=== PATIENT | female | born 1930 | race Caucasian/White ===

== ENCOUNTER 2016-11-14 09:49 | Inpatient (IN) | payer MEDICARE, MEDICAID ==
[~2016-11-14] VITALS: Ht 154.9 cm; Wt 45.5 kg
[2016-11-14 09:51] VITALS: BP 178/84
[2016-11-14] MEDS ORDERED: AMIODARONE HYD200 MG PO (10:05)
[2016-11-14] MEDS ORDERED: MIRALAX17 GM/DOSE PO (10:06)
[2016-11-14] MEDS ORDERED: COLACE100 MG PO (10:06)
[2016-11-14] MEDS ORDERED: FLUDROCORTISON0.1 MG PO (10:06)
[2016-11-14] MEDS ORDERED: ELIQUIS2.5 M1 PO (10:07)
[2016-11-14] MEDS ORDERED: POTASSIUM CHLO20 ME3 PO (10:07)
[2016-11-14 10:08] LABS: BASO % 0.4 % (0.0-1.0); EOS # 0.2 10*3/uL (0.0-0.4); EOS % 4.3 % (1.0-4.0); HEMATOCRIT 39.9 % (37.0-47.0); HEMOGLOBIN 13.1 g/dl (12.0-16.0); LYMPH # 1.1 10*3/uL (1.3-4.4); MEAN CELL VOLUME 93.4 fl (81.0-99.0); MEAN CORPUSCULAR HGB 30.7 pg (27.0-31.0); MEAN CORPUSCULAR HGB CONC 32.8 g/dl (33.0-37.0); MEAN PLATELET VOLUME 10.1 fl (9.6-12.3); MONO # 0.5 10*3/uL (0.1-1.0); MONO % 10.1 % (3.0-9.0); NEUT % 61.8 % (47.0-73.0); PLATELET COUNT AUTOMATED 253 10*3/uL (130-400); RED BLOOD COUNT 4.27 10*6/uL (4.10-5.10); RED CELL DISTRI WIDTH 14.4 % (0-14.5); WHITE BLOOD COUNT 4.9 10*3/uL (4.8-10.8)
[2016-11-14] MEDS ORDERED: TWOCAL-HN 240 ML8 OZ PO (10:08)
[2016-11-14] MEDS ORDERED: RANEXA500 M1 PO (10:08)
[2016-11-14] MEDS ORDERED: PEPCID20 MG PO (10:08)
[2016-11-14] MEDS ORDERED: DULCOLAX10 M1 RC (10:09)
[2016-11-14] MEDS ORDERED: MIDODRINE HCL5 M1 PO (10:09)
[2016-11-14] MEDS ORDERED: MILK OF MA400 MG/51 PO (10:10)
[2016-11-14] MEDS ORDERED: READY TO USE E133 ML RC (10:11)
[2016-11-14] MEDS ORDERED: TYLENOL325 M2 PO (10:11)
[2016-11-14] MEDS ORDERED: ZOFRAN4 MG PO (10:12)
[2016-11-14 10:17] LABS: PROTHROMBIN TIME 10.4 SECONDS (9.0-12.4)
[2016-11-14 10:24] LABS: ALBUMIN 3.3 gm/dl (3.1-4.5); ALKALINE PHOSPHATASE 104 U/L (45-117); BILIRUBIN, TOTAL 0.5 mg/dl (0.2-1.0); BUN 8 mg/dl (7-24); C-REACTIVE PROTEIN < 0.29 MG/DL (0-0.3); CARBON DIOXIDE 29 mmol/L (21-32); CHLORIDE 107 mmol/L (98-107); CKMB 0.7 ng/ml (0.5-3.6); CPK 34 U/L (26-192); EST GLOM FILT AFRICAN AMERICAN > 60 ml/min; GLUCOSE 96 mg/dL (65-99); MAGNESIUM 2.5 mg/dL (1.5-2.1); POTASSIUM 3.9 mmol/L (3.5-5.1); SGOT/AST 19 IU/L (3-35); SGPT/ALT 17 U/L (12-78); SODIUM 143 mmol/L (136-145); TOTAL PROTEIN 6.8 gm/dL (6.4-8.2); TROPONIN I < 0.015 ng/ml (<0.045)
[2016-11-14 11:15] VITALS: BP 160/89
[2016-11-14 12:00] VITALS: BP 160/89
[2016-11-14 12:29] LABS: CKMB 0.7 ng/ml (0.5-3.6); CPK 30 U/L (26-192)
[2016-11-14 12:39] LABS: TROPONIN I < 0.015 ng/ml (<0.045)
[2016-11-14 16:00] VITALS: BP 161/78
[2016-11-14 18:18] LABS: CKMB 0.7 ng/ml (0.5-3.6); CPK 33 U/L (26-192)
[2016-11-14 18:21] LABS: TROPONIN I < 0.015 ng/ml (<0.045)
[2016-11-14 20:00] VITALS: BP 154/69
[2016-11-15] VITALS: BP 110/56
[2016-11-15 00:36] LABS: CPK 29 U/L (26-192)
[2016-11-15 00:39] LABS: CKMB < 0.5 ng/ml (0.5-3.6); TROPONIN I < 0.015 ng/ml (<0.045)
[2016-11-15 06:19] LABS: BASO % 0.4 % (0.0-1.0); EOS # 0.3 10*3/uL (0.0-0.4); EOS % 5.5 % (1.0-4.0); HEMATOCRIT 36.2 % (37.0-47.0); HEMOGLOBIN 11.6 g/dl (12.0-16.0); LYMPH # 1.7 10*3/uL (1.3-4.4); LYMPH % 31.6 % (27.0-41.0); MEAN CELL VOLUME 94.5 fl (81.0-99.0); MEAN CORPUSCULAR HGB 30.3 pg (27.0-31.0); MEAN PLATELET VOLUME 10.5 fl (9.6-12.3); MONO # 0.6 10*3/uL (0.1-1.0); MONO % 11.2 % (3.0-9.0); NEUT # 2.8 10*3/uL (2.3-7.9); NEUT % 51.1 % (47.0-73.0); PLATELET COUNT AUTOMATED 242 10*3/uL (130-400); RED BLOOD COUNT 3.83 10*6/uL (4.10-5.10); RED CELL DISTRI WIDTH 14.6 % (0-14.5); WHITE BLOOD COUNT 5.5 10*3/uL (4.8-10.8)
[2016-11-15 06:54] LABS: BUN 13 mg/dl (7-24); CARBON DIOXIDE 29 mmol/L (21-32); CHLORIDE 107 mmol/L (98-107); CHOLESTEROL 215 mg/dL (<200); EST GLOM FILT AFRICAN AMERICAN > 60 ml/min; GLUCOSE 101 mg/dL (65-99); MAGNESIUM 1.9 mg/dL (1.5-2.1); PHOSPHOROUS 3.2 mg/dL (2.5-4.9); POTASSIUM 4.1 mmol/L (3.5-5.1); SODIUM 144 mmol/L (136-145); TRIGLYCERIDES 62 mg/dl (<150); VLDL CHOLESTEROL 12 mg/dL (6-40)
[2016-11-15 07:04] LABS: HDL CHOLESTEROL 82 mg/dl (40-60); LDL CHOLESTEROL 121 mg/dL (9-159)
[2016-11-15 08:00] VITALS: BP 158/82
== END 2016-11-15 12:04 | DRG 313 ==
LOC: ED 09:49 → EDHOLD 10:33 → 5E 10:54
PROVIDERS: Internal Medicine; Student in an Organized Health Care Education/Training Program
DX: R07.89 Other chest pain (principal); I25.2 Old myocardial infarction; E44.0 Moderate protein-calorie malnutrition; E83.41 Hypermagnesemia; F33.9 Major depressive disorder, recurrent, unspecified; F01.50 Vascular dementia, unspecified severity, without behavioral disturbance, psychotic disturbance, mood disturbance, and anxiety; I48.0 Paroxysmal atrial fibrillation; I10 Essential (primary) hypertension; Z68.1 Body mass index [BMI] 19.9 or less, adult; Z80.8 Family history of malignant neoplasm of other organs or systems; Z83.3 Family history of diabetes mellitus; I25.10 Atherosclerotic heart disease of native coronary artery without angina pectoris

== ENCOUNTER 2017-04-09 23:05 | Inpatient (IN) | payer MEDICARE, BC, MEDICAID ==
[~2017-04-09] VITALS: Ht 152.4 cm; Wt 40.8 kg
--- NOTE | ~2017-04-09 | PR ---
[place], [place] PROGRESS NOTE NAME: PATRICIA BIRCH UNIT #: [id number] ROOM: 310 DOCTOR: KALIE NAVA MD BIRTHDATE: [birth year] DOS: 04/18/2017 CHIEF COMPLAINT: "Oh honey thank you for visiting." SUMMARY OF THE VISIT: The patient was interviewed as she reclined in a Guerita-chair, sitting in the dining area waiting for breakfast. She smiled readily and engaged in conversation. She was much more pleasant and bright. She offered no other complaints. She is tolerating the current medication regimen well and is much more alert and conversant. MENTAL STATUS: She is alert and oriented to person, possibly place, not time. Mood does seem to be trending towards euthymia. Affect is more appropriate. There are no symptoms of kemi or hypomania. There are no acute auditory or visual hallucinations. No delusions, no paranoia. Memory for short term events is poor, otherwise she is intact. PLAN: I will maintain her current psychotropic regimen, engage in individual and foster milieu activity, planning to return to the least restrictive environment when stable. KALIE NAVA MD CM:PNTRANS [phone] KALIE NAVA MD 04/20/17 0856 interface
--- NOTE | ~2017-04-09 | PR ---
[place], [place] PROGRESS NOTE NAME: PATRICIA BIRCH UNIT #: [id number] ROOM: 310 DOCTOR: KALIE NAVA MD BIRTHDATE: [birth year] DOS: 04/12/2017 CHIEF COMPLAINT: "Oh, good morning, yes I'm in a little bit of discomfort, but don't bother." SUMMARY OF THE VISIT: The patient was interviewed as she was resting quietly in bed. She was interacting with one of the nurses as I entered her room. She smiled readily and engaged readily in conversation. This was one of the better conversations I have had with her since her admission. She was bright, pleasant, superficial. She did endorse some mild discomfort, but did not feel that it was significant to be doubt with. She reports that she is sleeping well, eating well and overall, feels better. She was much more relaxed in conversation and much more engaging. MENTAL STATUS: She is alert and oriented to person, possibly place, but not time. Mood does seem to be trending towards euthymia. Affect is more appropriate. There are no symptoms of hypomania or kemi. There are no overt auditory or visual hallucinations. No paranoia was voiced. Short term memory is exceedingly poor. PLAN: I will go ahead and increase Exelon patch from 4.6 to 9.5 mg a day and continue to augment with Namenda, increasing it from 5 mg a day to 5 mg twice daily. We will engage her in individual and foster milieu activity with the plan to return to the least restrictive environment when stable. KALIE NAVA MD CM:PNTRANS [id number] KALIE NAVA MD 04/12/17 1232 interface
--- NOTE | ~2017-04-09 | PR ---
[place], [place] PROGRESS NOTE NAME: PATRICIA BIRCH UNIT #: [id number] ROOM: 310 DOCTOR: KALIE NAVA MD BIRTHDATE: [birth year] DOS: 04/11/2017 CHIEF COMPLAINT: The patient was nonverbal. SUMMARY OF THE VISIT: The patient was attempted to be interviewed in her room. She seemed to be resting and I entered her room and I attempted on multiple occasions to arouse her and she did not respond. As I left the room, I looked over my shoulder and I did see that she was watching me. Nurses report similar behavior throughout the day that she does play possum in that she will not always respond and will then go ahead and do what she wants to do later. There definitely is an air of paranoia here and a level of guardedness. There was no agitation directed towards me. There was no mood lability. MENTAL STATUS: She is alert and oriented to self. It is unclear by the others because of her lack of cooperation. She remains confused per the nursing report. PLAN: I will go ahead and add Namenda at this point, augment the Exelon patch, maintain the dose of Risperdal at this point. She is episodically noncompliant with her medication, so I may need to load her with Risperdal Consta and/or Invega Sustenna once I know that she is tolerating this medication well. We will attempt to engage her in individual and foster milieu activity with the plan then to return to the least restrictive environment when stable. KALIE NAVA MD CM:PNTRANS KALIE NAVA MD 04/11/1724 interface
--- NOTE | ~2017-04-09 | PR ---
[place], [place] PROGRESS NOTE NAME: PATRICIA BIRCH UNIT #: [id number] ROOM: 310 DOCTOR: FREDA MONTERROSO BIRTHDATE: [birth year] DOS: 04/19/2017 CHIEF COMPLAINT: "Good morning." SUMMARY OF VISIT: The patient was assessed in the dining room where she engaged in conversation. Good eye contact, very pleasant, one or two word responses mostly, but occasionally, I would get a full sentence out of her. No voiced complaints from nursing. They feel that she is overall doing significantly better than at the time of admission. MENTAL STATUS: She appears to be alert and oriented to person, place, I do not think time. Mood euthymic. Affect is appropriate. There are no overt signs of auditory or visual hallucinations, delusions, or paranoia. She states that her sleep is good. Appetite is good. PLAN: I am going to continue with the current medications that we have on board when she was first admitted. She definitely had a urinary tract infection. It looks like the treatment of this has helped significantly. So, we will continue to try to engage in individual and foster milieu therapy. Significant improvement seen over the last 24 hours. DELIA MONTERROSO CNP CM:PNTRANS [phone] FREDA MONTERROSO 04/21/17 0754 interface
--- NOTE | ~2017-04-09 | PR ---
[place], [place] PROGRESS NOTE NAME: PATRICIA BIRCH UNIT #: [id number] ROOM: 310 DOCTOR: KALIE NAVA MD BIRTHDATE: [birth year] DOS: 04/14/2017 CHIEF COMPLAINT: "Good morning." SUMMARY OF THE VISIT: The patient was interviewed as she was resting quietly in bed. She did awake upon approach and engaged in superficial conversation. She tended to be minimizing and stated that there is nothing wrong and she thanked me for visiting. She was fairly pleasant and cooperative, very forgetful however. MENTAL STATUS: She is alert and oriented to person, unclear if she realizes she is in the hospital [facility] and she is not oriented to time. Mood does seem to be more euthymic. Affect more appropriate. There are no suggestive of kemi or hypomania and she did not voice any paranoia or delusion. Short term memory is exceedingly poor. PLAN: I will increase the Exelon patch to its maximum dose of 13.3 mg daily to attempt to maximize potential benefit. Engage in individual and foster milieu activity with the plan to return to the least restrictive environment when psychiatrically stable. KALIE NAVA MD CM:PNTRANS 26 KALIE NAVA MD 04/14/172326 interface
--- NOTE | ~2017-04-09 | PR ---
[place], [place] PROGRESS NOTE NAME: PATRICIA BIRCH UNIT #: [id number] ROOM: 310 DOCTOR: KALIE NAVA MD BIRTHDATE: [birth year] DOS: 04/13/2017 CHIEF COMPLAINT: "Oh, good morning. Thank you for breakfast." SUMMARY OF THE VISIT: The patient was interviewed as she sat in a Guerita chair eating her breakfast. She was bright and pleasant and engaging. Nurses report that she does sundown horribly and in the afternoon, early evening can be variably aggressive and even physically threatening. They also report that last evening or the previous, she was convinced that people were outside her window and that her brother was talking to her stating that he was going to come and kill her. Other voices were heard as well of a similar nature. MENTAL STATUS EXAMINATION: This morning, she is alert and oriented to person, possibly place, but not to time. Mood seems fairly euthymic. Affect appropriate. There are no symptoms of kemi or hypomania. There are no overt auditory or visual hallucinations. No delusions, no paranoia. Short term memory has significant gaps. PLAN: I will go ahead and increase her Namenda from 10 mg daily to 15 mg daily, to augment the Exelon patch 9.5 mg a day. We will continue her other psychotropics, continue to explore placement options as I do believe that she is going to require a long-term care placement at this point given her level of confusion as well as the positive psychosis. KALIE NAVA MD CM:PNTRANS 1247 KALIE NAVA MD 04/13/17 1247 interface
--- NOTE | ~2017-04-09 | PR ---
[place], [place] PROGRESS NOTE NAME: PATRICIA BIRCH UNIT #: [id number] ROOM: 310 DOCTOR: KALIE NAVA MD BIRTHDATE: [birth year] DOS: 04/16/2017 CHIEF COMPLAINT: "My daughter is , my daughter is ," the patient said to me sobbing hysterically. SUMMARY OF THE VISIT: The patient was interviewed as she sat in a Guerita chair just by the nurses' station. Nurses have reported to me that this morning she is fixated on the belief that her daughter has and she was hysterically crying. As I approached her and attempted to calm her, she was inconsolable. She continued to repeat over and over that her daughter is bed. I did talk to her about the possibility of reaching out and calling her daughter to help reassure her that her daughter is still living. She did calm at this point and then later nurses did reach her daughter and put her on the phone, which did seem to console Patricia at that point. Nurses report that she still remains episodically confused and has a great need for support and redirection. She requires help with ADLs and with medication. She has not exhibited any agitation or aggression. She does seem to be tolerating her current medication regimen well. MENTAL STATUS: She is alert and oriented to self. It is unclear at this point if she truly realizes she is in the hospital and she is certainly not oriented to time. Mood remains rather depressed and labile. She requires a great deal of support and redirection. She does have multiple delusions; unclear if these are true delusions or dreams that she makes to be true. In any case, she requires a great deal of support and redirection in order to reorient. PLAN: At the present time, she is on the maximum dose of both the Namenda and the Exelon, which I will maintain. I have adjusted her Risperdal dose down because of excess sedation and she seems to be at this point tolerating this current dose. I will continue to monitor her current symptomatology. I may need to rechallenge her with a slightly higher dose of the Risperdal if these delusions persist as they do seem to impact negatively upon her ability to interact with others and feel secure in her environment. We will discuss with social service liaison options regarding placement and discharge then when psychiatrically stable. [place], [place] PROGRESS NOTE NAME: PATRICIA BIRCH UNIT #: [id number] ROOM: 310 DOCTOR: KALIE NAVA MD BIRTHDATE: [birth year] KALIE NAVA MD CM:MELLISSA [phone] KALIE NAVA MD 04/17/177 interface
--- NOTE | ~2017-04-09 | WRIGHTHP ---
[place], [place] PATIENT HISTORY AND PHYSICAL EXAM NAME: PATRICIA BIRCH UNIT #: [id number] ROOM: 310 DOCTOR: KALIE NAVA MD BIRTHDATE: [birth year] DOS: 04/10/2017 CHIEF COMPLAINT: The patient was nonverbal. HISTORY OF PRESENT ILLNESS: This is an 86-year-old white female who was brought into [facility] on an involuntary basis. The patient apparently became increasingly combative with family. She ran out of her house believing that her son and ajlegdzv-cl-lme were trying to kill her. She stripped naked and ran and hid underneath her car, sustaining several skin tears in the process. Police had to intervene and remove her from underneath the car and brought her to the Emergency Room where they found her to be very combative and very confused. She was ultimately sent here to rule out organic factors and to stabilize on medication. She did receive several p.r.n. interventions which did calm her, but have resulted in installer soft top somnolence at this point making an interview next to impossible. PAST MEDICAL HISTORY: Remarkable for atrial fibrillation, coronary artery disease, hypertension, meningioma, past myocardial infarction, normocytic anemia and vascular dementia. MENTAL STATUS EXAMINATION: My mental status was limited due to her overall level of somnolence and inability to engage in conversation. DIAGNOSIS: Brief psychotic disorder. PLAN: At this point, the patient has been started on Risperdal 0.5 mg in the morning and 1 mg at bedtime. Our screening examinations revealed her to have a low vitamin D level of 19.6, so she will be started on vitamin D 50,000 International Units every week and also on Exelon patch 4.6 mg daily to improve or maintain ADLs, behavior and cognition. We will engage in individual and foster milieu activity with the ultimate plan to return to the least restrictive environment when psychiatrically stable. KALIE NAVA MD CM:HISPHYS:PATIENT HISTORY AND PHYSICAL EXAMINATION [phone] KALIE NAVA MD 04/10/17 1000 interface
--- NOTE | ~2017-04-09 | PR ---
[place], [place] PROGRESS NOTE NAME: PATRICIA BIRCH UNIT #: [id number] ROOM: 310 DOCTOR: KALIE NAVA MD BIRTHDATE: [birth year] DOS: 04/17/2017 CHIEF COMPLAINT: The patient was nonverbal. SUMMARY OF THE VISIT: The patient was attempted to be interviewed as she rested in a Guerita chair sitting in the group therapy room. The patient was somnolent and was sleeping. I attempted on multiple occasions to wake her first verbally and then gently by placing my arm on her shoulder. Neither of these approaches worked. Nurses report that she had a very good day yesterday. Unfortunately, she had a poor night where she was up most of the night and was unable to sleep. MENTAL STATUS: Limited due to her level of somnolence. PLAN: I will renew her Ativan in case she requires p.r.n. intervention. Given the fact that her days seem to be better with the current psychotropic regimen, I will maintain their doses as is. I will add trazodone 50 mg at bedtime as needed for insomnia. We will continue to support and monitor, explore possible options regarding placement and discharge then when psychiatrically stable. KALIE NAVA MD CM:PNTRANS [phone] KALIE NAVA MD 04/17/17 2350 interface
--- NOTE | ~2017-04-09 | DS ---
[place], [place] DISCHARGE SUMMARY NAME: PATRICIA BIRCH UNIT #: [id number] ROOM: 310 DOCTOR: KALIE NAVA MD BIRTHDATE: [birth year] DOS: 04/20/2017 CHIEF COMPLAINT: Initially upon admission, the patient was nonverbal. HISTORY OF PRESENT ILLNESS: This is an 86-year-old white female who was brought in to [facility] on an involuntary basis. The patient believed that her son and gkatynar-bv-jod were trying to kill her. She stripped naked and ran out of the house and hid underneath her car, sustaining several skin tears in the process. Police had to intervene and remove her from underneath the car and brought her into the Emergency Room where they found her to be very combative and confused. She ultimately was sent here to rule out organic factors, to stabilize on medication and to determine the least restrictive environment post-discharge. PAST MEDICAL HISTORY: Remarkable for atrial fibrillation, coronary artery disease, hypertension, meningioma, history of myocardial infarction, normocytic anemia and vascular dementia. SUMMARY OF HOSPITAL COURSE: The patient was admitted to the unit where she was started on Risperdal 0.5 mg in the morning and 1 mg at nighttime. Screening examination showed her to have a low vitamin D level of 19.6, so she was started on vitamin D. She was also started on both Exelon patch 4.6 mg a day and Namenda 5 mg a day. Both of these were rapidly titrated upward to their maximum dose to achieve full benefit. Exelon was brought up ultimately to 13.3 mg daily while the Namenda was brought up to 10 mg twice daily. The patient early in her stay alternated between periods of extreme agitation or somnolence. Ultimately, her Risperdal dose was lowered to 0.25 mg in the morning and 0.5 mg at night and a p.r.n. of trazodone was added to aid her sleep as the cholinesterase inhibitor and the Namenda began taking fact. She became much more alert, conversant and pleasant. She was no longer combative and in fact she was very engaging in conversation and responded to simple redirection well. She had improved sufficiently to be discharged from the hospital to [facility]. MENTAL STATUS AT DISCHARGE: The patient is alert and oriented to person, place, but not time. Mood is bright and pleasant and she is smiling and very engaging. There are no symptoms of hypomania or kemi. There are no auditory or visual hallucinations. No delusions, no paranoia. Short term memory is exceedingly poor. FINAL DIAGNOSES: Paranoid disorder and Alzheimer dementia. PLAN: All of her prescriptions have been printed and will be sent with her if she goes to [facility]. [place], [place] DISCHARGE SUMMARY NAME: PATRICIA BIRCH UNIT #: [id number] ROOM: 310 DOCTOR: KALIE NAVA MD BIRTHDATE: [birth year] KALIE NAVA MD CM:CHRISTOPHER 4 KALIE NAVA MD 04/20/1714 interface
--- NOTE | ~2017-04-09 | PR ---
[place], [place] PROGRESS NOTE NAME: PATRICIA BIRCH UNIT #: [id number] ROOM: 310 DOCTOR: KALIE NAVA MD BIRTHDATE: [birth year] DOS: 04/15/2017 CHIEF COMPLAINT: "Oh honey, thank you for visiting, today's my birthday." SUMMARY OF THE VISIT: The patient was interviewed as she sat in a Guerita chair, eating her breakfast. She smiled upon approach and engaged readily in conversation. She came to tell me that today is her birthday and that she was happy to be able to celebrate it with us. She remains pleasantly confused, but very bright and engaging. MENTAL STATUS: She is alert and oriented to person. It is unclear if she realizes she is at [facility]. She is certainly not oriented to time. Mood this morning seems much more euthymic. Affect was much more appropriate. There is no symptom suggestive of hypomania or kemi. There were no overt auditory or visual hallucinations. No delusions, no paranoia were present. Short term memory remains exceedingly poor. PLAN: I will maintain Exelon patch at 13.3 mg a day. I will increase the Namenda to its maximum dose of 10 mg twice daily, engage in individual and foster milieu activity, returning to the least restrictive environment when psychiatrically stable. KALIE NAVA MD CM:PNTRANS KALIE NAVA MD 04/15/1759 interface
--- NOTE | ~2017-04-09 | DS ---
[place], [place] DISCHARGE SUMMARY NAME: PATRICIA BIRCH UNIT #: [id number] ROOM: 310 DOCTOR: KALIE NAVA MD BIRTHDATE: [birth year] DOS: 04/21/2017 ADDENDUM CHIEF COMPLAINT: "Oh hi, thank you for coming to see me." SUMMARY OF THE VISIT: The patient was interviewed on 2 separate occasions, first when she was walking with the assistance of the Physical Therapy Department. The patient stopped and smiled readily and engaged in conversation. She reports that she is feeling well and she was experiencing no problems. Later, the patient was having issues with her gait and almost went to the floor. This was stopped by the Physical Therapy Department and nurses and we quickly got her a chair. She smiled and stated that she just tuckered out too quickly. Of note, the patient continues to be in good spirits. She has no voice paranoia, nor has she voiced any other delusions. She has been compliant with all aspects of care. She has been compliant with her medications. She has been eating and sleeping well and is now ready for discharge. MENTAL STATUS AT DISCHARGE: The patient is alert and oriented to person, possibly place, but not time. Mood does seem to be more euthymic. She smiles readily and engages in conversation. There are no symptoms suggestive of hypomania or kemi. There are no overt auditory or visual hallucinations. No delusions are present. Short term memory is poor, otherwise she is intact. Disposition and other information per the discharge summary dictated on 04/20/2017. KALIE NAVA MD CM:DISCHARG [id number] KALIE NAVA MD 04/22/17 0636 interface
[~2017-04-09 23:05] MED LIST: AMIODARONE HYD200 MG PO; COLACE100 MG PO; DULCOLAX10 M1 RC; ELIQUIS2.5 M1 PO; FLUDROCORTISON0.1 MG PO; MIDODRINE HCL5 M1 PO; MILK OF MA400 MG/51 PO; MIRALAX17 GM/DOSE PO; PEPCID20 MG PO; POTASSIUM CHLO20 ME3 PO; RANEXA500 M1 PO; READY TO USE E133 ML RC; TWOCAL-HN 240 ML8 OZ PO; TYLENOL325 M2 PO; ZOFRAN4 MG PO
[2017-04-10] MEDS ORDERED: POTASSIUM CHLO20 MEQ PO (00:10)
--- NOTE | 2017-04-10 00:25 | NUR ---
PATRICIA BIRCH a 86 year old F admitted via stretcher from the ADMITTING as a emergency 72 hr. hold admission. Arrived on unit at 0030. ALLERGIES: NKA. Vital signs are: 97.5-76-16 154/91. The client DID NOT sign the following forms with stated understanding: Authorization For The Release of Medical Information, Clothing List, Consent to Voluntary Admission and Hospitalization, Consent and Release Forms/Receipt of Rights, Acknowledgement of Advance Directive Information, Behavioral Health Consent Form, and Informed Consent of Medications. Admitted under the services of Dr. BRANDY MENDOZAKALIE. A search was conducted and hazardous articles were removed. Client was oriented to the unit. CALLCHANTE ESCORTED BY SECURITY STAFF AND AMBULANCE CREW PAPERWORK REVIEWED BY RN PRIOR TO ADMITTANCE.
[2017-04-10 00:35] VITALS: BP 154/91
--- NOTE | 2017-04-10 01:21 | NUR ---
DR. DOUGLAS MADE AWARE OF CONSULT FOR MEDICAL MANAGMENT
--- NOTE | 2017-04-10 02:26 | NUR ---
DR SANCHEZ HERE TO SEE CLIENT. FULL REVIEW OF CASE DONE. AWAITING NEW ORDERS
--- NOTE | 2017-04-10 05:18 | NUR ---
HAS BEEN RESTING WELL SINCE ADMISSION. DRESSINGS DRY AND INTACT. TURNED FOR COMFORT 24 HR chart check completed.
[2017-04-10 07:17] LABS: BASO % 0.6 % (0.0-1.0); EOS # 0.1 10*3/uL (0.0-0.4); EOS % 1.5 % (1.0-4.0); HEMATOCRIT 38.5 % (37.0-47.0); HEMOGLOBIN 12.3 g/dl (12.0-16.0); LYMPH # 1.5 10*3/uL (1.3-4.4); LYMPH % 29.2 % (27.0-41.0); MEAN CELL VOLUME 92.8 fl (81.0-99.0); MEAN CORPUSCULAR HGB 29.6 pg (27.0-31.0); MEAN CORPUSCULAR HGB CONC 31.9 g/dl (33.0-37.0); MEAN PLATELET VOLUME 10.4 fl (9.6-12.3); MONO # 0.5 10*3/uL (0.1-1.0); MONO % 9.8 % (3.0-9.0); NEUT # 3.1 10*3/uL (2.3-7.9); NEUT % 58.7 % (47.0-73.0); PLATELET COUNT AUTOMATED 216 10*3/uL (130-400); RED BLOOD COUNT 4.15 10*6/uL (4.10-5.10); RED CELL DISTRI WIDTH 14.9 % (0-14.5); WHITE BLOOD COUNT 5.3 10*3/uL (4.8-10.8)
[2017-04-10 07:48] LABS: ALBUMIN 3.1 gm/dl (3.1-4.5); ALKALINE PHOSPHATASE 84 U/L (45-117); BUN 15 mg/dl (7-24); CHLORIDE 108 mmol/L (98-107); CHOLESTEROL 243 mg/dL (<200); CREATININE 0.97 mg/dL (0.55-1.02); HDL CHOLESTEROL 83 mg/dl (40-60); LDL CHOLESTEROL 144 mg/dL (9-159); POTASSIUM 3.7 mmol/L (3.5-5.1); SGOT/AST 19 IU/L (3-35); SGPT/ALT 16 U/L (12-78); SODIUM 141 mmol/L (136-145); TOTAL PROTEIN 6.4 gm/dL (6.4-8.2); TRIGLYCERIDES 79 mg/dl (<150); VLDL CHOLESTEROL 16 mg/dL (6-40)
[2017-04-10 07:55] VITALS: BP 117/80
--- NOTE | 2017-04-10 08:33 | NUR ---
TREATMENT TEAM WAS HELD WITH THE FOLLOWING: DR. NAVA, RN,AT, SW. DR NAVA RECOMMENDS PALACEMENT. [facility] WAS WHERE PT WAS BEFORE.
--- NOTE | 2017-04-10 09:47 | NUR ---
PHYSICAL THERPAY PAtient sleeping and unable to arouse. Will attempt at alater date. Thank you for this referral. Verenice Eason,PT
--- NOTE | 2017-04-10 09:48 | NUR ---
Patient approached in bed for Occupational Therapy evaluation this date. Patient was laying bed in position and able to respond verbally minimally with severe lethargy. OTR will attempt at a later date. Thank you for this referral. Sandra Aden OTR/tucker
--- NOTE | 2017-04-10 12:59 | NUR ---
Exercise/Independent activity Patient did not attend group. Patient was asleep and could not wake her. I will try again for afternoon group
--- NOTE | 2017-04-10 14:25 | NUR ---
PT IS NOT TALKING, STARING, SHAKES HEAD YES AND NO AT TIMES, PT STOOD UP AND URINATED ALL OVER THE FLOOR, AND STARTED HITTING STAFF TRYING TO HELP HER. PT LEG DRESSING CAME OFF AND WAS BLEEDING DOWN HER LEG, LET NURSE PUT A 4X4 FOAM TO COVER, WOUNDN;T LET THIS NURSE ASSESS WRIST WOUND. PT IS SCARED, CONFUSED, AND WITHDRAWN, REFUSED BREAKFAST AND LUNCH, REFUSED MEDICATIONS, WILL CONTUNUE TO MONITOR BEHAVIORS, MEDICATION COMPLIANT, WILL CONTINUE TREAMENT PLAN
--- NOTE | 2017-04-10 15:23 | NUR ---
Decorating pumpkins This will help patient with thinking,conentration,self esteem and socialization. Patient did not attend group. Patient was asleep and she was too groggy to wake up
--- NOTE | 2017-04-10 16:50 | NUR ---
DTR DROPPED OFF SOME CLOTHES AND UPPER DENTURES. dTR LOOKING AT PLACEMENT AT [facility]. DTR GOING TO BE MOVING TO [place] CLOSER TO HER DTR. DTR NOT ABLE TO CARE FOR PT DUE TO HER OWN HELATH ISSUES. PT'S BEHAVIOR BEGAN 3 WEEKS AGO. PT WAS DX WITH DEMENTIA ABOUT 2-3 YEARS AGO. NO BEHAVIORS UNTIL NOW. PT WA BEING AGGRESSIVE AND PARANOID. SW ASKED DTR TO CONSIDER OTHER FACILITIES DUE TO [facility] NOT TAKING BEHAVIORS. DTR WILL TALK WITH HER SISTER TO SEE WHAT TO DO.
[2017-04-10 20:00] VITALS: BP 122/56
--- NOTE | 2017-04-11 01:44 | NUR ---
24HR CHART CHECK COMPLETE
--- NOTE | 2017-04-11 06:06 | NUR ---
PT SLEPT >8HRS, UNINTERRUPTED. PT CONFUSED, ORIENTED TO NAME ONLY. IMPROVEMENT NOTED FROM PREVIOUS SHIFT IN DEMEANOR TOWARDS STAFF AND COMPLIANCE WITH MEDICATIONS. NURSE ATTMEPTED TO REORIENT AND PRESENT REALITY WHEN CONFUSION WAS NOTED. ATTEMPTED TO FOSTER THERAPEUTIC RAPPORT. REFER TO FLOWSHEET FOR ADDITIONAL INFO.
[2017-04-11 08:29] VITALS: BP 118/82
[2017-04-11 10:14] LABS: BILIRUBIN 1+ (NEGATIVE); BLOOD TRACE-INTACT (NEGATIVE); CLARITY CLOUDY (CLEAR); COLOR YELLOW (YELLOW); GLUCOSE NEGATIVE (NEGATIVE); KETONE TRACE (NEGATIVE); LEUKO ESTERASE 2+ (NEGATIVE); NITRITE NEGATIVE (NEGATIVE); SPECIFIC GRAVITY >= 1.030 (1.005-1.030); UROBILINOGEN 0.2 E.U./dl (0.2-1.0)
[2017-04-11 10:21] LABS: BACTERIA 3+; EPITHELIAL CELLS 21-30; WBC TNTC wbc/hpf (0-5)
--- NOTE | 2017-04-11 10:40 | NUR ---
CALL RECIEVED FROM PT'S ANDRYTHER/ADELIA EVELYN, UPDATE GIVEN. STATES SHE WILL PROBABLY COME TO VISIT TOMORROW TO GIVE PT ONE MORE DAY TO ACCLIMATE TO THE UNIT AND FOR ATB TX TO BEGIN FOR SUGGESTIVE URINALYSIS.
--- NOTE | 2017-04-11 10:45 | NUR ---
DR. KIRK, DR. HERNANDEZ AND DR. MILLS ON UNIT TO SEE PT AT THIS TIME. MADE AWARE OF ABNORMAL URINALYSIS RESULTS.
--- NOTE | 2017-04-11 11:56 | NUR ---
THIS NURSE APPROACHED PT X3 ATTEMPTS THIS AM TO COMPLETE WOUND ASSESSMENTS AND TREATMENTS ORDERED, PT REFUSED EACH TIME, UPON THE LAST ATTEMPT TO BECAME PHYSICALLY AGGRESSIVE TOWARD THIS NURSE AND YELLED "GET OUT OF HERE, YOU DON'T HAVE TO DO ANYTHING." PT IN BED AT THIS TIME WITH BED ALARM AND MOBILITY CLIP ALARM IN PLACE FOR SAFETY D/T HIGH FALL RISK, RESTING QUIETLY, ALSO REFUSED TO GET OOB FOR LUNCH, STATES "NO!". Q15 MIN MONITORING CONTINUES PER POLICY.
--- NOTE | 2017-04-11 12:53 | NUR ---
PT IS ALERT AND ORIENTED TO PERSON, STATES SHE KNOWS SHE IS IN THE HOSPITAL BUT NOT SURE WHICH ONE, STATES "I THINK IT'S A MENTAL HOSPITAL. THERE MUST BE SOMETHING WRONG WITH ME." PT UNABLE TO RECALL EVENTS LEADING UP TO HOSPITALIZATION. NOT ORIENTED TO TIME OR SITUATION. ST/LT MEMORY GAPS NOTED. RESPIRATIONS EASY ON ROOM AIR. MOOD IS DEPRESSED, EASILY ANGRY/IRRITABLE WITH HANDS ON CARE OR REDIRECTION. PT DENIES HALLUCINATIONS, NO RESPONSE TO INTERNAL STIMULI NOTED. PT DENIES SI/HI. MEDICATION COMPLIANT THIS AM, HOWEVER; PT REFUSED WOUND CARE DESPITE MULTIPLE ATTEMPTS. N.O RECIEVED FOR MONUROL X 1 DOSE FOR TX OF UTI. NO DISTRESS NOTED. HIGH FALL RISK PRECAUTIONS MAINTAINED, REMINDED TO PT USE CALL [place] FOR ASSISTANCE OOB, BED ALARM AND MOBILITY ALARM ACTIVE AND AUDIBLE. NO DISTRESS NOTED. Q15 MIN SAFETY CHECKS MAINTAINED, REFER TO [facility] FLOWSHEET FOR SPECIFIC MONITORING.
--- NOTE | 2017-04-11 17:08 | NUR ---
SHIFT CHART CHECK COMPLETED.
[2017-04-11 20:14] VITALS: BP 136/86
--- NOTE | 2017-04-12 00:26 | NUR ---
24HR CHART CHECKS COMPLETE
--- NOTE | 2017-04-12 06:06 | NUR ---
PT SLEPT >8HRS WITH TWO AWAKENINGS FOR TOILETING. PT REFUSED TO ALLOW NURSING STAFF TO CHANGE DRESSINGS X2. ATTEMPTED TO EDUCATE PT REGARDING THE IMPORTANCE OF ADHERING TO THE WOUND CARE ORDERS. PT UNABLE TO PROPERLY VERBALIZE UNDERSTANDING OF EDUCATION. ENCOURAGED PT TO VERBALIZE NEEDS TO STAFF. REFER TO FLOWSHEET FOR ADDITIONAL INFO.
[2017-04-12 07:54] VITALS: BP 126/68
--- NOTE | 2017-04-12 15:38 | NUR ---
Yoli is noted to exhibit a depressed mood and some confusion today. She is oriented to person only. Compliant with medications. Limited understanding of current issues due to cognitive impairment. She has required assistance with toileting and hygiene measures and is noted to be cooperative when completing these tasks. Dr. Sneed in to see her today with orders received. No overt s/s of hallucinatory activity is noted. Appetite is fair to good, however, she has required some encouragement to maintain an adequate fluid intake. Daughter, Kathy visited today and she voiced feelings of relief that Yoli was able to recognize her and converse appropriately. Yoli has not offered any interacting with peers, but does readily converse with staff when approached. Refer to [facility] flowsheet for more specific monitoring. Wound care and dressing changes completed as prescribed.
--- NOTE | 2017-04-12 18:34 | NUR ---
Yoli refused to eat her evening meal stating that she was not hungry. She has required one assist to transfer for toileting and has been noted several times attempting to ambulate independently. Body alarms in place and fall precautions have been maintained.
[2017-04-12 20:00] VITALS: BP 151/82
--- NOTE | 2017-04-13 01:41 | NUR ---
24 HR chart check completed.
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
--- NOTE | 2017-04-13 04:28 | NUR ---
DRESSING APPLIED ORDERED. PATIENT TOLERATED WELL.
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
--- NOTE | 2017-04-13 05:56 | NUR ---
PATIENT OBSERVED ON Q 15 MIN SAFETY CHECKS TO HAVE SLEPT APPROX 1 HOURS WITH MULTIPLE AWAKENINGS DUE TO POSITIVE AUDITORY HALLUCINATIONS OF HER BROTHER OR SISTER WAS TALKING TO HER THROUGH THE WINDOW. PT ALSO ATTEMPTED TO GET OUT OF BED X3 WITHOUT ASSISTANCE OF STAFF THIS SHIFT. FALL PRECAUTIONS MAINTAINED AND PATIENT MOVED NEAR NURSES STATION FOR SAFETY. MEDICATION COMPLIANT THIS SHIFT WITHOUT DIFFICULTY. CURRENTLY SITTING WITH STAFF WATCHING TV IN DINING ROOM. PATIENT APPEARS CALM, NO PERIODS OF TEARFULNESS NOTED. PRN ATIVAN EFFECTIVE AT THIS TIME. NO SIGNS OR SYMPTOMS OF DISTRESS NOTED.
[2017-04-13 08:02] VITALS: BP 132/79
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
--- NOTE | 2017-04-13 09:40 | NUR ---
Spoke with danilo in regards to pt. being d/c'ed to [facility]. Danilo requested updated info. in regards to pt. behavior over weekend and they do have a female bed if pt. behavior improves. Will also send out referral to [facility] where another dtr. lives and will help care for pt.
--- NOTE | 2017-04-13 10:52 | NUR ---
DR. KIRK HERE TO SEE PT AT THIS TIME. MADE AWARE OF URINE CULTURE RESULTS SHOWING E.COLI AND THAT PT WAS TREATED WITH MONUROL X1 ON 04/11/17.
--- NOTE | 2017-04-13 11:01 | NUR ---
Exercise/Trivia Exercise helps with mobility,circulation ans staying active,Trivia helps with socializing,concentration,memory and thinkinPatient did attend group as well as participated. Patient in a chair but did very well exercising even lifting leg when needed. Patient stayed on task and followed direction well. patient also participated in trivia doing very well answering questions and engaging with other patients
--- NOTE | 2017-04-13 12:55 | NUR ---
Dr. Sneed looking at end of week if placement found for pt. still needs to adjust med's to get pt. psychiatrically stabilzed and "sundowning" behaviors under control.
--- NOTE | 2017-04-13 12:56 | NUR ---
case management called [employer] into [employer], per Kasandra, is a med gap policy and her primary insurance is medicare
--- NOTE | 2017-04-13 12:57 | NUR ---
Guevara spoke with MISAEL Mcmahon on Unit for update. Beto states that family is to call in and let her know where to send referral in [place], in case [facility] is not an option. GUEVARA sent updated info. to [facility]. [facility] is concerned that pt. behavior may not be appropriate for their facility.
--- NOTE | 2017-04-13 13:42 | NUR ---
CALL RECIEVED FROM PT'S DAUGHTER/POA EVELYN, UPDATE GIVEN, MADE AWARE PT REFUSED FLU SHOT ON THURSDAY, THIS NURSE QUESTIONED IF POA WOULD LIKE THIS NURSE TO ATTEMPT TO GIVE FLU SHOT DURING THIS STAY, POA STATES "YES PLEASE."
--- NOTE | 2017-04-13 13:59 | NUR ---
UNDER THE DIRECTION OF SHOT BLAST EQUIPMENT OPERATOR GAVINO, FLU VACCINE ORDERED UNDER COVERING HOSPITALIST, DR. KIRK PER POLICY DIRECTED TO DIRECTOR BY DR. SUGGS.
--- NOTE | 2017-04-13 14:28 | NUR ---
Patient not available for OT evaluation this date as she was in group therapy session. OTR will attempt at a later date. Thank you for this referral. Sandra Aden OTR/Carlos
--- NOTE | 2017-04-13 14:31 | NUR ---
PHYSICAL THERAPY PAtient at group at this time. Thak you for this referral. Verenice Eason,PT
--- NOTE | 2017-04-13 18:37 | NUR ---
SHIFT CHART CHECK COMPLETED.
[2017-04-13 19:53] VITALS: BP 148/87
--- NOTE | 2017-04-14 05:22 | NUR ---
PT SLEPT >8 HOURS, UNINTERRUPTED. PT CONFUSED, ORIENTED TO NAME ONLY. NO HALLUCINATIONS/DELUSIONS NOTED SO FAR THIS SHIFT. MEDICATION COMPLIANT WITHOUT DIFFICULTY AFTER REVIEW. NO PHYSICAL COMPLAINTS VOICED. PATIENT CURRENTLY IN BED WITH EYES CLOSED. RESPIRATIONS EASY AND REGULAR, NO SIGNS OR SYMPTOMS OF DISTRESS NOTED. REFER TO [facility] FLOWSHEET FOR SPECIFIC MONITORING.
--- NOTE | 2017-04-14 07:57 | NUR ---
Fall Craft This will help patient with concentration, mobility, thinking,socializing and self esteem Patient did attend group but did not participate stating " I'm not a crafty kind of girl." patient sat at the table talking and "organizing" my craft supplies. Patient also gave advise to another patient sitting next to her on her craft
[2017-04-14 08:00] VITALS: BP 128/68
--- NOTE | 2017-04-14 09:15 | NUR ---
DR. KIRK ON UNIT TO SEE PT AT THIS TIME.
--- NOTE | 2017-04-14 09:51 | NUR ---
PHYSICAL THERAPY Pnt unable to be aroused to participate in PT evaluation today. Will attempt again tomorrow. Shelley Verma, PT
--- NOTE | 2017-04-14 13:26 | NUR ---
PT IS ALERT AND ORIENTED TO SELF ONLY, CONFUSED IN ALL OTHER AREAS. ST/LT MEMORY DEFICITS NOTED. RESPIRATIONS EASY ON ROOM AIR. MOOD IS DEPRESSED, AFFECT IS FLAT, TEARFUL AT VISITATION WITH DAUGTHER. SPEECH IS SOFT, BUT COHERENT, ABLE TO MAKE NEEDS KNOWN TO STAFF WITHOUT DIFFICULTY. PT DENIES HALLUCINATIONS, NO RESPONSE TO INTERNAL STIMULI NOTED. PT DENIES SI/HI. NO PARANOIA/DELUSIONS NOTED THIS SHIFT. PT SLEEPING UNTIL APPROX 11AM THIS DATE, PT EASILY AROUSABLE BUT REFUSED TO GET OOB FOR BREAKFAST, AM MEDS WERE HELD D/T DROWSINESS, DR. NAVA AWARE. PT WAS ASSISTED OOB AND WITH ADLS APPROX 11AM BY MILIEU STAFF, PT AWAKE, ALERT AND APPROPRIATE AT THIS TIME, ATE 100% OF LUNCH WITH ADEQUATE FLUID INTAKE, STATES "THAT BREAKFAST WAS EXCEPTIONALLY GOOD THIS MORNING, THANK YOU!" PT RELIANT ON STAFF FOR ASSISTANCE WITH ADLS AND TOILETING, PT CONINENT OF BOWEL AND BLADDER. NO DISTRESS NOTED. Q15 MIN SAFETY CHECKS MAINTAINED, HIGH FALL RISK PRECAUTIONS MAINTAINED PER POLICY, ALARMS ACTIVE AND AUDIBLE. REFER TO [facility] FLOWSHEET FOR SPECIFIC MONITORING.
--- NOTE | 2017-04-14 13:29 | NUR ---
Reading/Reminiscing Patient was asleep and was unable to awaken. Will try for afternoon group
--- NOTE | 2017-04-14 17:56 | NUR ---
PT DID NOT PARTICIPATE IN GROUP DUE TO SLEEPING.
--- NOTE | 2017-04-14 17:56 | NUR ---
MISAEL BRIEFLY SPOKE WITH DTR. DTR STATED IF [facility] DOES NOT ACCPET PT THEN SHE'LL TAKE HER HOME.
--- NOTE | 2017-04-14 18:59 | NUR ---
SHIFT CHART CHECK COMPLETED.
[2017-04-14 20:09] VITALS: BP 147/70
--- NOTE | 2017-04-14 21:14 | NUR ---
MEDICATION COMPLIANT, ALERT AND CALM. READING BOOK. STATES HAD A GOOD DAY P#1- PSYCOSIS I- TEACH ABOUT ALL MEDICATIONS, TEACH NEW COPING SKILLS, ENCOURAGE CLIENT TO VERBALIZE FEARS, MONITOR GAIT P- MEDICATION COMPLIANCE, NO FALLS, USE NEW TECHNIQUES TO KEEP SELF ORIENTED NO FALLS
--- NOTE | 2017-04-15 02:39 | NUR ---
24 HR chart check completed.
--- NOTE | 2017-04-15 06:21 | NUR ---
SLEPT WELL PAST 2200PM. UP TO VOID, SMALL INCONTINENCE OF URINE.
[2017-04-15 07:44] LABS: BASO % 0.6 % (0.0-1.0); EOS # 0.2 10*3/uL (0.0-0.4); EOS % 3.3 % (1.0-4.0); HEMOGLOBIN 10.8 g/dl (12.0-16.0); LYMPH # 1.6 10*3/uL (1.3-4.4); LYMPH % 30.8 % (27.0-41.0); MEAN CELL VOLUME 94.3 fl (81.0-99.0); MEAN CORPUSCULAR HGB 30.9 pg (27.0-31.0); MEAN CORPUSCULAR HGB CONC 32.7 g/dl (33.0-37.0); MEAN PLATELET VOLUME 10.4 fl (9.6-12.3); MONO # 0.6 10*3/uL (0.1-1.0); MONO % 10.8 % (3.0-9.0); NEUT # 2.8 10*3/uL (2.3-7.9); NEUT % 54.1 % (47.0-73.0); PLATELET COUNT AUTOMATED 185 10*3/uL (130-400); RED CELL DISTRI WIDTH 14.6 % (0-14.5); WHITE BLOOD COUNT 5.1 10*3/uL (4.8-10.8)
--- NOTE | 2017-04-15 08:04 | NUR ---
Who Am I?/Positive Traits This helps wit self esteem,concentrarion socialization and thinking Patient did attend group as well a participated. Patient was very encouraging to others stating positive traits. Patient seemed to have no issues choosing positive traits for herself
[2017-04-15 08:22] VITALS: BP 136/68
[2017-04-15 08:22] LABS: ALBUMIN 2.6 gm/dl (3.1-4.5); ALKALINE PHOSPHATASE 80 U/L (45-117); BUN 16 mg/dl (7-24); CHLORIDE 107 mmol/L (98-107); CREATININE 0.83 mg/dL (0.55-1.02); POTASSIUM 3.8 mmol/L (3.5-5.1); SGOT/AST 21 IU/L (3-35); SGPT/ALT 16 U/L (12-78); SODIUM 142 mmol/L (136-145); TOTAL PROTEIN 5.7 gm/dL (6.4-8.2)
--- NOTE | 2017-04-15 08:30 | NUR ---
Treatment Team was held with the following: Dr. Sneed, ASSISTANT PROGRAM DIRECTOR, Medical Student. RN, SW, and AT. Dr. Sneed is recommended 30day Rehab stay or NH for safety. SW has referral for [facility]. Family will take home if [facility] does not take her. MISAEL will speak with Dtr about 's recomendation and concerns.
--- NOTE | 2017-04-15 10:41 | NUR ---
DR KIRK UP SEE PATIENTS
--- NOTE | 2017-04-15 10:59 | NUR ---
24 HR chart check completed.
--- NOTE | 2017-04-15 11:00 | NUR ---
PT UP IN A VERÓNICA CHAIR, EYES CLOSED, AROUNSABLE, PLEASANT
--- NOTE | 2017-04-15 12:50 | NUR ---
Nutritional Support Services Note: Skin tear noted. Appetite is improving. Will continue with a regular diet as ordered. Encourage intake. Provide snacks between meals. Will follow as needed. Nova Thompson
--- NOTE | 2017-04-15 13:15 | NUR ---
Exercise/Games Patient was in attendence during group but did not participate. Patient was asleep and i could not get her awake for group
--- NOTE | 2017-04-15 14:43 | NUR ---
PHYSICAL THERAPY PAtient at group at this time. Thank you for this referral. Verenice Galvan,PT
--- NOTE | 2017-04-15 15:00 | NUR ---
Patient attending group therapy session and not available for OT evaluation. Thank you for this referral. Sandra Aden OTR/l
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
--- NOTE | 2017-04-15 17:23 | NUR ---
ALERT TO SELF, THINKS TODAY IS HER BIRTHDAY STATES SHE IS 89YEARS OLD, PLEASANT, AND COOPORATIVE, INCONTINENT, - BM TODAY, SOCIAL WITH STAFF , SMILING, REST ON AND OFF THROUGH OUT THE DAY, MED COMPLIANT TAKE PILLS WHOLE
[2017-04-15 20:00] VITALS: BP 131/74
--- NOTE | 2017-04-15 22:14 | NUR ---
MEDICATION COMPLIANT. C/O BEING TIRED AND JUST WANTED TO GO TO SLEEP. CONTINENT OF URINE. PM CARE DONE. REFUSED PM SNACK
--- NOTE | 2017-04-16 01:37 | NUR ---
OUT OF BED AND CONFUSED. THINKS SHE IS HOME AND WANTS TO GO DOWNSTAIRS AND SLEEP ON THE COUCH. REORIENTED AND PLACED BACK IN BED IN POSITION OF COMFORT. WILL MONITOR
--- NOTE | 2017-04-16 03:28 | NUR ---
INTERMITTENTLY AWAKENING. EMOTIONAL SUPPORT PROVIDED. POSITION OF COMFORT. 24 HR chart check completed.
[2017-04-16 08:16] VITALS: BP 116/80
--- NOTE | 2017-04-16 08:56 | NUR ---
Craft/Being afraid This craft included a saying about being afraid. This group helped patients with discussing feelings especially the feeling of being afraid Patient did attend group as well as participated. Patient stayed on tasks with little or no 1:1. Patient wasnt afraid because "today is my birthday." Patient confused it is not her birthday
--- NOTE | 2017-04-16 11:33 | NUR ---
ON UNIT TO ASSESS PT.
--- NOTE | 2017-04-16 14:48 | NUR ---
PHYSICAL THERAPY EVALUATION COMPLETED. PATIENT SITTING IN VERÓNICA CHAIR IN COMMON ROOM UPON THIS CLINIAN'S ARRIVAL. PATIENT PLEASANT AND SMILING; COOPERATIVE AND WILLING TO PARTICIPATE. PATIENT STATED SHE NEEDS TO GET HER LEGS STRONGER AND WANTS TO WALK. PATIENT NOT ORIENTED TO PLACE OR TIME, ORIENTED TO NAME ONLY. ALIGNER TYPEWRITER X 1 WITH 2 ATTEMPTS TO STAND FROM VERÓNICA CHAIR. GAIT TWICE APPROX 50FT WITH ALIGNER TYPEWRITER X 1. PATIENT WILL BENEFIT FROM GAIT WITH A FRONT WHEELED WALKER WITH SBA.B LE STRENGTH IS FAIR-GOOD AND EQUAL BILATERALLY. LOW COMPLEXITY PHYSICAL THERAPY EVALUATION; PATIENT REQUIRED LITTLE MANUAL ASSISTANCE, MORE ASSITANCE FOR SAFETY FOR FOOT PLACEMENT AND REDUCING FALL RISK WALKING, MINIMAL MEDICAL REVIEW/PHM. CONTINUE PT AND RECOMMNEND SNF PLACEMENT FOR STRENGTHENING, GAIT, BALANCE, TRANSFERS AND SAFETY.
--- NOTE | 2017-04-16 16:22 | NUR ---
PT ALERT TO PERSON ONLY, UNSURE OF PLACE AND TIME. PT MED COMPLIANT WITHOUT DIFFICULTY. PT MOOD IS STABLE. PT PLEASANT AND COOPERATIVE, INTERACTING WITH STAFF AND PEERS. NO HALLUCINATIONS OR DELUSIONS NOTED. PT DENIES ANY HOMICIDAL/SUICIDAL THOUGHTS. PT TEARFUL THIS MORNING, THINKING HER DAUGHTER HAS , EMOTIONAL SUPPORT PROVIDED AND PT SPOKE WITH DAUGHTER ON THE PHONE. PT CAN BE TEARFUL AT TIMES THROUGHOUT THE DAY, EMOTIONAL SUPPORT AND REDIRECTION PROVIDED. PT CONTINENT OF BOWEL AND BLADDER WITH EPISODES OF INCONTINENCE NOTED, CARE PROVIDED NEEDED. WOUND CARE PROVIDED, PT REFUSED DRESSINGS TO BILATERAL WRISTS STATING "THEY ARE JUST SCABS, I DON'T NEED ANYTHING." PLAN IS TO ENCOURAGE PT TO PARTICIPATE IN GROUPS/ACTIVITIES, ORIENT PT TO REALITY WITH EACH INTERACTION, MONITOR PT BEHAVIORS ON Q15 MIN SAFTEY CHECKS.
--- NOTE | 2017-04-16 16:48 | NUR ---
Occupational Therapy evaluation completed [facility] with full eval to follow. Precautions include fall risk, disorientation, low complexity level. Recommend OT per POC and SNF upon d/c Thank you for this referral. Sandra Aden OTR/l
[2017-04-16 20:16] VITALS: BP 109/64
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
--- NOTE | 2017-04-17 03:28 | NUR ---
24HR CHART CHECK COMPLETE
--- NOTE | 2017-04-17 06:01 | NUR ---
PT SLEPT >5HRS WITH ONE INTERRUPTION THAT LASTED SEVERAL HOURS. PT WAS ATTENDING TO INTERNAL STIMULI, CONVINCED HER DAUGHTER WAS SPEAKING TO HER. REFER TO FLOWSHEET FOR ADDITIONAL INFO/
--- NOTE | 2017-04-17 07:51 | NUR ---
04/16/2017 Morning: Triradha This helps the patient with self esteem, thimking, concentration, socializing and lifting their spirits. Patient did attend group as well as participate. In the begining of group patient was crying and upset but was soon laughing and smiling answering questions with the other patients.
[2017-04-17 08:01] VITALS: BP 148/68
--- NOTE | 2017-04-17 11:50 | NUR ---
Exercise/[place] Patient did not attend group. Patient was asleep in the quiet room
--- NOTE | 2017-04-17 12:30 | NUR ---
MISAEL SPOKE WITH EVELYN QUINN Tauntr. PT IS ACCPETED. MISAEL FAXED UPDATED INFORMATION AND WILLBE DISCHARGED THURSDAY.
--- NOTE | 2017-04-17 14:32 | NUR ---
PHYSICAL THERAPY Patient presented to therapy with report of no pain or other concerns. Patient agrees to participate in therapy. Patient performed sit to stands CGA X 1. Patient ambulated 150' x 1 with W/W and CGA X 1. Patient then ambulated again with PATROL MOTHER 200' x 1. Patient performed seated ther ex in all planes of movement for the LEs x 20 each. Patient tolerated all gait and ther ex very well with no increased fatigue or other difficulty. Patient was 1:1 with this ELECTRONIC PUBLICATIONS SPECIALIST for 25 minutes. OCTAVIA MOHR ELECTRONIC PUBLICATIONS SPECIALIST
--- NOTE | 2017-04-17 15:14 | NUR ---
Reminiscing This helps with memories,concentration,self esteem, and socializing Patient did attend group as well as participated. Patient shared memories of late summer/early fall kacey she helped her mother with. Patient went on to tell everone what was canned this time of year and other things she didas a child and growing up
--- NOTE | 2017-04-17 15:56 | NUR ---
Patient asleep. Will try back at another date.LISANDRO SOTO/Carlos
--- NOTE | 2017-04-17 17:41 | NUR ---
PT ALERT TO PERSON ONLY. PT MED COMPLIANT WITHOUT DIFFICULTY. PT MOOD IS STABLE. PT PLEASANT AND COOPERATIVE WITH STAFF AND PEERS. NO OVERT S/S OF HALLUCINATIONS OR DELUSIONS NOTED. PT DENIES ANY HOMICIDAL/SUICIDAL THOUGHTS. PT CONTINENT OF BOWEL AND BLADDER WITH EPISODES OF INCONTINENCE NOTED, CARE PROVIDED NEEDED. PT NAPPED THROUGHOUT THE MORNING, PT AROUSABLE BUT REFUSING TO WAKE FOR BREAKFAST OR LUNCH. PLAN IS TO ENCOURAGE PT TO PARTICIPATE IN GROUPS/ACTIVITIES, MONITOR PT BEHAVIORS ON Q15 MIN SAFETY CHECKS.
[2017-04-17 20:06] VITALS: BP 116/67
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
--- NOTE | 2017-04-18 05:44 | NUR ---
24HR CHART CHECKS COMPLETE
--- NOTE | 2017-04-18 06:41 | NUR ---
PT SLEPT >8HRS WITH ONE INTERRUPTION TO USE THE RESTROOM
[2017-04-18 08:56] VITALS: BP 151/58
--- NOTE | 2017-04-18 11:13 | NUR ---
ON UNIT TO ASSESS PT.
--- NOTE | 2017-04-18 14:15 | NUR ---
PT ALERT TO PERSON ONLY. PT MED COMPLIANT WITHOUT DIFFICULTY. PT MOOD IS STABLE, PT PLEASANT AND COOPERATIVE WITH STAFF AND PEERS. NO HALLUCINATIONS OR DELUSIONS NOTED. PT DENIES ANY HOMICIDAL/SUICIDAL THOUGHTS. NO COMBATIVE BEHAVIOR NOTED. PT UP TO GERICHAIR, AMBULATES SHORT DISTANCES WITH STAFF ASSISSTANCE. PT CONTINENT OF BOWEL AND BLADDER WITH EPISODES OF INCONTINENCE NOTED, CARE PROVIDED NEEDED. PT SLEPT THRU BREAKFAST AND CONSUMED 50% OF LUNCH. PLAN IS TO ENCOURAGE PT TO PARTICIPATE IN GROUPS/ACTIVITIES, MONITOR PT BEHAVIORS ON Q15 MIN SAFTEY CHECKS, PRESENT REALITY TO PT WITH EACH INTERACTION.
[2017-04-18 20:00] VITALS: BP 110/50
--- NOTE | 2017-04-19 04:11 | NUR ---
24 HR chart check completed.
--- NOTE | 2017-04-19 06:55 | NUR ---
PT CONTINUES TO HAVE PERIODS OF CONFUSING, CLIMBING OUT OF BED UNASSISTED FOR TOILITING. IMPROVED AMBULATION, MED COMPLIANT WITH OUT DIFFICULTY. SLEPT 8+ HOURS.
[2017-04-19 08:02] VITALS: BP 154/76
--- NOTE | 2017-04-19 10:55 | NUR ---
ON UNIT TO ASSESS PT.
--- NOTE | 2017-04-19 14:04 | NUR ---
PT ALERT TO PERSON. PT MED COMPLIANT WITHOUT DIFFICULTY. PT MOOD IS STABLE. PT PLEASANT AND COOPERATIVE, INTERACTING WITH STAFF AND PEERS. PT PREOCCUPIED AT LUNCH, PT ATE 1/2 OF HER SANDWHICH AND 1/2 OF HER PIE STATING "I'M SAVING THE REST FOR MY DAUGHTER, SHE IS COMING AND IS GOING TO WANT LUNCH." ATTEMPTED TO PRESENT REALITY TO PT WITHOUT SUCCESS, PT STATING "OK JUST LEAVE IT SIT HERE, SO SHE CAN HAVE IF WHEN SHE DOES COME." PT NOTICABLY BRIGHTER AND MORE PLEASANT. NO AGGRESSION OR COMBATIVE BEHAVIOR NOTED. NO HALLUCINATIONS NOTED. PT DENIES ANY HOMICIDAL/SUICIDAL THOUGHTS. PT UP TO GERICAHIR, ABLE TO AMBULATE WITH STAFF ASSISTANCE, GAIT UNSTEADY AT TIMES. PT CONTINENT OF BOWEL AND BLADDER, EPISODES OF INCONTINENCE NOTED, CARE PROVIDED NEEDED. PLAN IS TO ENCOURAGE PT TO PARTICIPATE IN GROUPS/ACTIVITIES, MONITOR PT BEHAVIORS ON Q15 MIN SAFETY CHECKS.
[2017-04-19 20:00] VITALS: BP 128/58
--- NOTE | 2017-04-19 21:15 | NUR ---
HAD A GOOD DAY TODAY. USED WALKER WITHOUT DIFFICULTY. BECAME MORE CONFUSED AFTER DINNER. DURING MEDICATION PASS CLIENT WAS NOTED TO BE HAVING A FULL CONVERSATION WITH HER DAUGHTER. LAUGHING AND DISCUSSING HER LOVE OF FOOD. WILL MONITOR.
--- NOTE | 2017-04-20 03:20 | NUR ---
24 HR chart check completed.
--- NOTE | 2017-04-20 03:56 | NUR ---
HAS BEEN UP ONCE SINCE 2300PM LOOKING FOR HER DAUGHTER. USES WALKER WITHOUT DIFFICULTY. HAS BEEN SLEEPING WELL SINCE
[2017-04-20 07:51] VITALS: BP 132/80
[2017-04-20] MEDS ORDERED: MEMANTINE HCL10 MG PO (08:48)
[2017-04-20] MEDS ORDERED: RISPERIDONE0.5 MG PO (08:48)
[2017-04-20] MEDS ORDERED: RISPERIDONE0.25 M2 PO (08:48)
[2017-04-20] MEDS ORDERED: EXELON13.3 MG/21 T (08:48)
[2017-04-20] MEDS ORDERED: TRAZODONE50 MG PO (08:48)
--- NOTE | 2017-04-20 09:01 | NUR ---
Patient seen 1:1 25 minutes this date. patient identified by name and date of . Patient seated EOB upon arrival and donned socks CGA. patient completed sit to stand bed CGA with instruction proper hand placement for safety. patient completed functional ambulation use FWW to bathroom CGA and completed toileting task CGA. Patient completed grooming seated/ standing at sink use FWW support with mod verbal cues and [place] to complete brushing teeth and comb hair. patient c/o dizziness and instructed to sit arm chair to rest with dizziness subsiding and nursing notified. patient completed bed mobilty Wellington use rail. patient verbalized fatgue with session this date. continue towards plan of care. Roxanna SOTO/Carlos
--- NOTE | 2017-04-20 09:30 | NUR ---
MISAEL spoke with Kathy at [facility]. Kathy requested updated information. SW faxed information to Kathy. Kathy will submit for [place] [facility]. Pt may trip screen.
--- NOTE | 2017-04-20 09:39 | NUR ---
CALL PLACED TO HOSPITALIST CELL NUMBER 2, SPOKE TO DR. THOMAS, MADE AWARE OF DISCHARGE FOR TODAY TO NURSING FACILITY.
--- NOTE | 2017-04-20 10:00 | NUR ---
SW LEFT VM FOR DTR EVELYN THAT PT WAS ACCCEPTED AT [facility].
--- NOTE | 2017-04-20 11:00 | NUR ---
DISCHARGE WOUND PHOTOS TAKEN AND WOUND CARE PROVIDED AT THIS TIME. AREAS TO BOTH RIGHT AND LEFT WRISTS HAVE RESOLVED, AREAS SCABBED OVER, NO TX NEEDED. WOUND CARE PROVIDED TO AREAS ON BLE ORDERED.
--- NOTE | 2017-04-20 11:15 | NUR ---
Exercise/April Fun Facts and Trivia This helps the patient with mobility and circulation as well as concentration to stay on task and follow along. Trivia helps with concentration, thinking, and socializing. Patient did not originally want to come to group, stating "It was kind of you to ask but i dont do groups. They make me feel ill at ease." Patient came to trivia portion of group, joining in and answering trivia questions and sharing april memories.
--- NOTE | 2017-04-20 11:33 | NUR ---
PHYSICAL THERAPY Continue with original plano fcare toward original goals extended to 05/02/17. Vereniec Eason,PT
--- NOTE | 2017-04-20 13:38 | NUR ---
PT IS ALERT AND ORIENTED TO PERSON, APPROXIMATE TO PLACE, STATES SHE IS AWARE SHE IS IN THE HOSPITAL BUT UNSURE OF WHICH ONE. NOT ORIENTED TO TIME OR SITUATION. ST/LT MEMORY GAPS NOTED. RESPIRATIONS EASY ON ROOM AIR. MOOD IS STABLE, EUTHYMIC, AFFECT IS BROAD RANGE AND APPROPRIATE. PT DENIES HALLUCINATIONS, NO RESPONSE TO INTERNAL STIMULI NOTED. PT DENIES SI/HI. MEDICATION COMPLIANT WITHOUT DIFFICULTY. PT IS CALM AND COOPERATIVE, INTERACTIVE WITH STAFF AND PEERS, PARTICIPATES IN GROUPS AND ACTIVITIES. AMBULATORY WITH WHEELED WALKER, GAIT STEADY WITH ASSISTIVE DEVICE. PT COMPLIANT WITH USING WALKER. REMINDED TO ASK FOR ASSISTANCE WITH TRANSFERS/TOLIETING OR IF PT FEELS UNSTEADY - PT VERBALIZED UNDERSTANDING. PT CONTINENT OF BOWEL AND BLADDER, DISPLAYS GOOD APPETITE WITH ADEQUATE FLUID INTAKE. NO DISTRESS NOTED. Q15 MIN SAFETY CHECKS MAINTAINED, REFER TO [facility] FLOWSHEET FOR SPECIFIC MONITORING.
--- NOTE | 2017-04-20 14:13 | NUR ---
PHYSICAL THERAPY Patient presented to therapy with report of no pain and no other complaints. Patient says she is hoping to go home soon. Patient performed gait with no AD and TANK CAR INSPECTOR X 1 for 250' x 1 with no LOB or other difficulty. Patient was 1:1 with this FOXPRO DEVELOPER for 15 minutes. Elijah Escalante FOXPRO DEVELOPER
--- NOTE | 2017-04-20 16:00 | NUR ---
MISAEL CALLED EVELYN HUTCHISON. SAM BACK BUT IT TRIPPED THE SCREEN. IT WAS SENT FOR FURTHER REVIEW WITH RY . IT COULD TAKE UP TO 24HOURS. MISAEL NOTIFIED NURSING THAT PT PROBABLY WILL NOT BE LEAVING DUE TO [facility] GOING FOR FURTHER REVIEW.
--- NOTE | 2017-04-20 18:19 | NUR ---
SHIFT CHART CHECK COMPLETED.
--- NOTE | 2017-04-20 19:00 | NUR ---
SW LEFT FOR DTR EVELYN THAT [facility] TRIPPED THE SCREEN AND FURTHER REVIEW WAS NOT BACK YET. PT PROBABLY GO TO [facility] ON THURSDAY.
[2017-04-20 19:57] VITALS: BP 145/74
--- NOTE | 2017-04-20 22:09 | NUR ---
TEARY AND CONFUSED AT THIS TIME. THINKS SHE HEARS HER FAMILY OUTSIDE WINDOW AND THEY FORGOT TO TAKE HER. UNABLE TO REDIRECT. SAT WITH CLIENT FOR [facility] TO PROVIDE EMOTIONAL SUPPORT. WILL CONTINUE TO MONITOR
--- NOTE | 2017-04-21 03:02 | NUR ---
HAS BEEN RESTING SINCE EARLY CONFUSED CRYING MOMENT. MOVING SELF IN BED. RESP EASY NON LABORED
--- NOTE | 2017-04-21 04:45 | NUR ---
24 HR chart check completed.
--- NOTE | 2017-04-21 04:46 | NUR ---
HAS SLEPT WELL PAST 2100PM
[2017-04-21 08:42] VITALS: BP 127/76
--- NOTE | 2017-04-21 08:48 | NUR ---
Spoke with Kathy at [facility] [place] she states that she has not heard back yet on [facility] for pt. Will call her again shortly, bt this usually does not take more than 24 hrs, Kathy expects it will be back today and pt. admitted to their facility today ([facility]).
--- NOTE | 2017-04-21 10:49 | NUR ---
PHYSICAL THERAPY Yoli seen this AM 1:1 and was up in the day room at this time. Transfer sit/stand and up on wheeled walker CG X 1. Gait total 135' X 2, one sitting rest. On Yoli's second gait she was getting very tired and needing a chair brought to her at this time just could not go anymore. Pt BP was 138/84, o2 100%, Dr Sneed present Pt wheeled into the day room for her breakfast, treatment time having no complaint. MUNIR GUTIERREZ BUSHEL GIRL.
--- NOTE | 2017-04-21 12:38 | NUR ---
MEDICAL RECORD ASSISTANT GAVE SW MESSAGE FROM EVELYN BARRIENTOS INFORMING THAT FURHTER REVIEW WAS BACK AND PT WAS SET TO GO. SW HEARD NURSE TALKING THAT DR WANTED PT TO HAVE A C SCAN DUE TO BEING DIZZY WHEN DURING THERPAY. nURSE STATED THAT PT HAD TO HAVE CSCAN BEFORE LEAVING.
--- NOTE | 2017-04-21 12:39 | NUR ---
SW WAS INFORMED BY NORM MOODY THAT PT'S C SCAN WAS CANCELED AND TRANSPORATION COULD BE SCHEDULED.
--- NOTE | 2017-04-21 12:40 | NUR ---
MISAEL CALLED TO INFORM DTR THAT PT'S FURTHER REVIEW WAS BACK AND TRANSPORATION WAS GOING TO BE SCHEDCULED. MISAEL WILL LET DTR EVELYN KNOW THE TIME OF ACTIVATED SLUDGE OPERATOR.
--- NOTE | 2017-04-21 12:41 | NUR ---
SW CHECKED WITH NURSE TO MAKE SURE EVERYTHING WAS READY BEFORE TRANSPORATION WAS SCHEDULED. NURSE SAID IT'S OK TO SCHEDULE TRANSPORATION.
--- NOTE | 2017-04-21 12:42 | NUR ---
MISAEL SPOKE WITH [facility] AND SCHEDULED TRANSPORTATION FOR 2:30PM FOR PT TO GO TO [facility].
--- NOTE | 2017-04-21 12:43 | NUR ---
SW NOTIFIED DTR EVELYN THAT [facility] WAS PICK ING UP PT AROUND 2;30PM FOR TRANSPORT TO [facility].
--- NOTE | 2017-04-21 12:48 | NUR ---
MISAEL NOTIFIED STAFF THAT PT WAS LEAVING AROUND 2:30PM.
--- NOTE | 2017-04-21 12:50 | NUR ---
MISAEL copied Discharge paperwork for [facility] and [facility]. MISAEL will mail discharge papers for signture by [facility].
--- NOTE | 2017-04-21 13:00 | NUR ---
Exercise/Bad Jokes and Slogans Patient did not attend group this morning. Patient was asleep and did not want to get up and join group.
--- NOTE | 2017-04-21 13:35 | NUR ---
SPOKE TO MUSA ELLISON WHO STATES TO CANCEL EKG.
--- NOTE | 2017-04-21 14:15 | NUR ---
Yoli is compliant with prescribed medications. Mood is less depressed and she has been noted to exhibit some appropriate smiling. On 1:1 interaction with staff confusion is noted and @ times she believes that she is in a different time and place. Receptive to orientation, however, these episodes continue @ intervals. @ one point this morning when ambulating with PT she reported that she was feeling "tired" and her knees were noted to buckle. She was assisted to wheelchair by staff and vital signs were checked and were within normal limits. N.P was notified, however, after speaking with Yoli's POA it was found that she has been experiencing these symptoms for several years and was previously examined for this. Yoli later was noted to be bright and pleasant when speaking with staff and peers. Though she does attend some group activities and has been provided with education regarding alternative coping strategies and illness she also exhibits difficulty with retaining this information due to cognitive decline. Fall precautions continue per policu and have been maintained. Nurse to nurse report provided to Joshua Gold [facility] as discharge is pending for this afternoon. N.P also in to see her today. Yoli did leave this facility, discharged, on this date @ this time, accompanied by ambulance personnel. She is alert and oriented to person only. Destination is [facility]. Prior to her departure dressings were changed to wounds and pictures were retaken of each. All personal items were returned. Refer to disposition for more specific information.
--- NOTE | 2017-04-21 15:30 | NUR ---
Pt discharged to [facility] by [facility] around 2:15pm.
--- NOTE | 2017-04-22 13:19 | NUR ---
Hotel Front Desk Clerk Note: Mailed paperwork to Kathy (daughter/poa) today.
--- NOTE | 2017-04-23 08:05 | NUR ---
PHYSICAL THERAPY CO-SIGN I approve of the Phyical Therapy notes written above. DANE CARABALLO PT
== END 2017-04-21 14:30 | disposition other institution (70) | DRG 57 ==
LOC: 3N 23:05
PROVIDERS: ADMIT Psychiatry & Neurology Psychiatry
DX: G30.8 Other Alzheimer's disease (principal); E44.0 Moderate protein-calorie malnutrition; F01.51 Vascular dementia, unspecified severity, with behavioral disturbance; F33.9 Major depressive disorder, recurrent, unspecified; I48.91 Unspecified atrial fibrillation; F23 Brief psychotic disorder; I10 Essential (primary) hypertension; E55.9 Vitamin D deficiency, unspecified; F02.81 Dementia in other diseases classified elsewhere, unspecified severity, with behavioral disturbance; Z68.1 Body mass index [BMI] 19.9 or less, adult; D32.9 Benign neoplasm of meninges, unspecified; I25.10 Atherosclerotic heart disease of native coronary artery without angina pectoris; I25.2 Old myocardial infarction; Z82.49 Family history of ischemic heart disease and other diseases of the circulatory system; Z83.3 Family history of diabetes mellitus; Z84.89 Family history of other specified conditions; Z79.899 Other long term (current) drug therapy

== ENCOUNTER 2017-11-21 02:39 | Emergency (ER) | payer MEDICARE, BC, MEDICAID ==
[~2017-11-21] VITALS: Wt 36.3 kg
[~2017-11-21 02:39] MED LIST changes: +EXELON13.3 MG/21 T; +MEMANTINE HCL10 MG PO; +POTASSIUM CHLO20 MEQ PO; +RISPERIDONE0.25 M2 PO; +RISPERIDONE0.5 MG PO; +TRAZODONE50 MG PO
[2017-11-21 03:35] LABS: BASO % 0.5 % (0.0-1.0); EOS # 0.1 10*3/uL (0.0-0.4); EOS % 1.3 % (1.0-4.0); HEMATOCRIT 36.9 % (37.0-47.0); HEMOGLOBIN 11.5 g/dl (12.0-16.0); LYMPH # 1.4 10*3/uL (1.3-4.4); LYMPH % 21.8 % (27.0-41.0); MEAN CELL VOLUME 94.6 fl (81.0-99.0); MEAN CORPUSCULAR HGB 29.5 pg (27.0-31.0); MEAN CORPUSCULAR HGB CONC 31.2 g/dl (33.0-37.0); MEAN PLATELET VOLUME 10.3 fl (9.6-12.3); MONO # 0.6 10*3/uL (0.1-1.0); MONO % 9.2 % (3.0-9.0); NEUT # 4.2 10*3/uL (2.3-7.9); PLATELET COUNT AUTOMATED 195 10*3/uL (130-400); RED CELL DISTRI WIDTH 14.1 % (0-14.5); WHITE BLOOD COUNT 6.2 10*3/uL (4.8-10.8)
[2017-11-21 03:44] LABS: BILIRUBIN NEGATIVE (NEGATIVE); BLOOD NEGATIVE (NEGATIVE); CLARITY CLEAR (CLEAR); COLOR YELLOW (YELLOW); GLUCOSE NEGATIVE (NEGATIVE); KETONE NEGATIVE (NEGATIVE); NITRITE NEGATIVE (NEGATIVE); PH 5.5 (5.0-9.0); SPECIFIC GRAVITY >= 1.030 (1.005-1.030)
[2017-11-21 03:48] LABS: LEUKO ESTERASE TRACE (NEGATIVE)
[2017-11-21 03:50] LABS: BUN 22 mg/dl (7-24); CHLORIDE 109 mmol/L (98-107); CREATININE 0.93 mg/dL (0.55-1.02); POTASSIUM 4.5 mmol/L (3.5-5.1); SODIUM 144 mmol/L (136-145)
[2017-11-21 03:50] LABS: BACTERIA TRACE; EPITHELIAL CELLS 20-25; URINE AMPHETAMINES < 1000 (1000ng/ml); URINE BARBITURATES < 200 (200ng/ml); URINE BENZODIAZEPINES < 200 (200ng/ml); URINE CANNABINOIDS (THC) < 50 (50ng/ml); URINE COCAINE < 300 (300ng/ml); URINE METHADONE < 300 (300ng/ml); URINE OPIATES < 300 (300ng/ml)
[2017-11-21 03:53] LABS: ACETAMINOPHEN (TYLENOL) < 2.0 ug/ml (10-30); ETHYL ALCOHOL < 3.0 mg/dl (<3)
[2017-11-21 03:53] LABS: URINE PHENCYCLIDINE < 25 (25ng/ml)
[2017-11-21] MEDS ORDERED: KEPPRA500 MG PO (08:39)
[2017-11-21] MEDS ORDERED: LOPRESSOR25 MG PO (09:11)
[2017-11-21] MEDS ORDERED: SEROQUEL25 MG PO ×3 (09:12→09:17)
[2017-11-21] MEDS ORDERED: VITAMIN D350000 UNIT PO (09:14)
== END 2017-11-21 07:55 | disposition home health service (06) ==
LOC: ED 02:39
PROVIDERS: Emergency Medicine
DX: F02.81 Dementia in other diseases classified elsewhere, unspecified severity, with behavioral disturbance (principal); G30.9 Alzheimer's disease, unspecified; R44.3 Hallucinations, unspecified; I48.91 Unspecified atrial fibrillation; I25.10 Atherosclerotic heart disease of native coronary artery without angina pectoris; I10 Essential (primary) hypertension; F32.9 Major depressive disorder, single episode, unspecified; F91.8 Other conduct disorders; Z90.49 Acquired absence of other specified parts of digestive tract; Z90.710 Acquired absence of both cervix and uterus; Z98.890 Other specified postprocedural states; Z79.899 Other long term (current) drug therapy

== ENCOUNTER 2017-11-21 07:46 | Inpatient (IN) | payer MEDICARE, BC, MEDICAID ==
[~2017-11-21] VITALS: Ht 152.4 cm; Wt 40.4 kg
--- NOTE | ~2017-11-21 | PR ---
[place], [place] PROGRESS NOTE NAME: PATRICIA BIRCH UNIT #: [id number] ROOM: 309 DOCTOR: KALIE NAVA MD BIRTHDATE: [birth year] DOS: 11/23/2017 CHIEF COMPLAINT: "Oh thank you for stopping by." SUMMARY OF THE VISIT: The patient was interviewed as she sat eating breakfast. She smiled readily as I approached and engaged readily in conversation. She was fairly bright and pleasant and offered no other complaints. She was engaging. She notes no side effects from the medicines themselves. Nurses report a significant improvement since she has been in here. MENTAL STATUS: She is alert and oriented to person, possibly place, but not time. Mood does seem to be strongly trending towards euthymia. Affect seems brighter. There is no kemi or hypomania. There are no gross psychotic symptoms. Short term memory continues to be problematic. PLAN: I will go ahead and maximize out her dose of Trintellix bringing it from 10 mg to 20 mg a day. Continue to engage in individual and foster milieu activities, returning to the least restrictive environment when stable. KALIE NAVA MD CM:PNTRANS 0 [id number] KALIE NAVA MD 11/23/17 1003 interface
--- NOTE | ~2017-11-21 | PR ---
[place], [place] PROGRESS NOTE NAME: PATRICIA BIRCH UNIT #: [id number] ROOM: 317 DOCTOR: PRANAV WATSON DO BIRTHDATE: [birth year] DOS: 11/27/2017 CHIEF COMPLAINT: "I'm fine today." SUMMARY OF VISIT: The patient is an 87-year-old female with past medical history of vascular dementia, who was admitted to the U for worsening of ongoing auditory and visual hallucinations currently on hospital day #6 with no changes in mood. The patient is currently stable. The patient was interviewed in her room. She appeared to be resting comfortably in bed. She did not appear to be in any form of distress. The patient was more verbal today indicating that she is doing well and that she did not need anything at this time. The patient did not show any signs of experiencing hallucinations. She continues to appear to be confused at baseline. She is currently on Cipro antibiotic for a urinary tract infection which is being managed by the Internal Medicine hospitalist team. The patient reports good appetite with improvement in sleep last night. MENTAL STATUS EXAMINATION: The patient is alert and oriented to self only. Her mood is appropriate. Her affect is normal. She appears to be more euthymic today. She continues to have gaps in her short term memory, which is very poor. She does not appear to be experiencing auditory or visual hallucinations at this time. PLAN: 1. Order to renew Ativan was placed this morning. No other changes to her current psychotropic regimen were made. The patient seems to be tolerating regimen well. 2. The patient is currently on Cipro 500 mg b.i.d. for urinary tract infection. This is being managed by the Internal Medicine hospitalist team. 3. Disposition; the patient likely to be discharged Thursday11/30/2017 back to ____. We will continue to engage the patient in individual and foster milieu activity, returning to the least restrictive environment when psychiatrically stable. Pranav Watson DO [place], [place] PROGRESS NOTE NAME: PATRICIA BIRCH UNIT #: [id number] ROOM: 317 DOCTOR: PRANAV WATSON DO BIRTHDATE: [birth year] KALIE NAVA MD CM:MELLISSA [id number] PRANAV WATSON DO 11/27/17 215 interface
--- NOTE | ~2017-11-21 | DS ---
[place], [place] DISCHARGE SUMMARY NAME: PATRICIA BIRCH UNIT #: [id number] ROOM: 317 DOCTOR: KALIE NAVA MD BIRTHDATE: [birth year] DOS: 11/30/2017 CHIEF COMPLAINT: The patient was somnolent upon admission. HISTORY OF PRESENT ILLNESS: This is an 87-year-old white female brought here from [facility] in [place]. The patient was sent to the Emergency Room because of increased agitation and ongoing auditory and visual hallucinations. The hallucinations are generally present at baseline, but have worsened in the last several weeks prior to this admission, causing her to be increasingly more agitated and labile. She has been very combative with hands on care and has been refusing intervention. While in the Emergency Room, she was so agitated and aggressive, she had to have p.r.n. Geodon to prevent harm to self and others. She is admitted now to rule out organic factors and attempt to stabilize on medication, returning to the least restrictive environment when psychiatrically stable. PAST MEDICAL HISTORY: Remarkable for atrial fibrillation, coronary artery disease, hypertension, meningioma, normocytic anemia of vascular dementia and myocardial infarction. Her strengths are good verbal skills. She is ambulatory and has a supportive family. She does not drink alcohol or use illicit drugs nor does she smoke. SUMMARY OF HOSPITAL COURSE: The patient was admitted to the unit where her Seroquel was discontinued in lieu of Latuda. It was felt that this would be more efficacious without the sedative properties. She was maintained on Exelon patch and Namenda. Latuda was started at 40 mg at bedtime and increase to 60. It was felt that there was also a depressive component here, so Trintellix 10 mg a day was started and increased to 20 with excellent results. The patient dramatically improved to the point where she was bright, pleasant and even joking. She was no longer combative or resistive to care. She engaged readily in conversation. Sleep and appetite normalized. She was discharged then to return back to [facility]. MENTAL STATUS AT DISCHARGE: The patient is alert and oriented to person, place, not time. Mood is euthymic. Affect is appropriate. There is no hypomania or kemi. There are no gross psychotic symptoms. Short term memory remains poor. FINAL DIAGNOSES: Major depression, recurrent with psychotic features and Alzheimer's dementia. DISPOSITION: The patient is to return to [facility] in [place]. Her prescriptions have been printed and will be sent with her. She is medically and psychiatrically stable. Her biopsychosocial needs are adequately being met by the facility, by family and by myself. ADDENDUM CHIEF COMPLAINT ON THE DAY OF ADMISSION: "Oh, hi there honey, thank you for stopping." [place], [place] DISCHARGE SUMMARY NAME: PATRICIA BIRCH UNIT #: [id number] ROOM: 317 DOCTOR: KALIE NAAV MD BIRTHDATE: [birth year] SUMMARY OF THE VISIT: The patient was interviewed as she was sitting at a table engaging in activities. She smiled upon approach. She was very pleasant and cooperative. She voiced no complaints and stated that she is feeling well. When I told her that she would be leaving the hospital more than likely today, she smiled and nodded again. MENTAL STATUS AT DISCHARGE: Today, the patient is alert and oriented to self, possibly place. It is unclear though she realizes she is in [facility], certainly not to time. Mood is fairly euthymic. Affect is appropriate. Her speech rate and pattern is slow and deliberate, but she is much more pleasant and cooperative than she had been upon admission. There are no kemi, hypomania or psychotic symptoms noted. She does process conversation slowly and short term memory remains impaired. DISCHARGE DIAGNOSES AND DISPOSITION: As per the initial discharge summary dictated yesterday. KALIE NAVA MD CM:DISCHARG [id number] KALIE NAVA MD 12/01/17 1415 interface
--- NOTE | ~2017-11-21 | WRIGHTHP ---
[place], [place] PATIENT HISTORY AND PHYSICAL EXAM NAME: PATRICIA BIRCH UNIT #: [id number] ROOM: 309 DOCTOR: KALIE NAVA MD BIRTHDATE: [birth year] DOS: 11/21/2017 INITIAL PSYCHIATRIC EVALUATION CHIEF COMPLAINT: The patient was somnolent. HISTORY OF PRESENT ILLNESS: This is an 87-year-old white female who was brought here from [facility] in [place]. The patient was sent to the ER because of increased agitation and a worsening of her ongoing auditory and visual hallucinations. These hallucinations are generally present at baseline, but have worsened over the last several weeks, causing her to be increasingly more agitated and more labile. She has been combative with care, refusing intervention. While in the Emergency Room, she was so agitated and aggressive, she had to have p.r.n. Geodon to prevent harm to self and others. She is admitted now to rule out organic factors, to stabilize on medication, returning then to the least restrictive environment when psychiatrically stable. PAST MEDICAL HISTORY: Remarkable for atrial fibrillation, coronary artery disease, hypertension, meningioma, normocytic anemia, vascular dementia and a history of myocardial infarction. Her strengths are good verbal skills, ambulatory and supportive family. MENTAL STATUS: The patient is alert and oriented to person. She was very somnolent, so it was hard this morning to interact much with her. She was pleasant when she did interact with me and there was no agitation noted. There was no aggression. I was unable to get information regarding her true mood or whether or not she was still experiencing hallucinations. Memory for the most part showed poor short term memory. DIAGNOSES: Intermittent explosive disorder, brief psychotic disorder. PLAN: I have discontinued her Seroquel in lieu of Latuda 40 mg at bedtime. I have maintained Exelon patch and Namenda. We will engage in individual and foster milieu activity with the plan ultimately to return to the least restrictive environment when psychiatrically stable. [place], [place] PATIENT HISTORY AND PHYSICAL EXAM NAME: PATRICIA BIRCH UNIT #: [id number] ROOM: 309 DOCTOR: KALIE NAVA MD BIRTHDATE: [birth year] KALIE NAVA MD CM:HISPHYS:PATIENT HISTORY AND PHYSICAL EXAMINATION [id number] KALIE NAVA MD 11/21/17 1107 interface
--- NOTE | ~2017-11-21 | DS ---
[place], [place] DISCHARGE SUMMARY NAME: PATRICIA BIRCH UNIT #: [id number] ROOM: 317 DOCTOR: KALIE NAVA MD BIRTHDATE: [birth year] DOS: 12/01/2017 ADDENDUM CHIEF COMPLAINT ON THE DAY OF ADMISSION: "Oh, hi there honey, thank you for stopping." SUMMARY OF THE VISIT: The patient was interviewed as she was sitting at a table engaging in activities. She smiled upon approach. She was very pleasant and cooperative. She voiced no complaints and stated that she is feeling well. When I told her that she would be leaving the hospital more than likely today, she smiled and nodded again. MENTAL STATUS AT DISCHARGE: Today, the patient is alert and oriented to self, possibly place. It is unclear though she realizes she is in [facility], certainly not to time. Mood is fairly euthymic. Affect is appropriate. Her speech rate and pattern is slow and deliberate, but she is much more pleasant and cooperative than she had been upon admission. There are no kemi, hypomania or psychotic symptoms noted. She does process conversation slowly and short term memory remains impaired. DISCHARGE DIAGNOSES AND DISPOSITION: As per the initial discharge summary dictated yesterday. KALIE NAVA MD CM:DISCHARG [id number] KALIE NAVA MD 12/01/17 1418 interface
--- NOTE | ~2017-11-21 | PR ---
[place], [place] PROGRESS NOTE NAME: PATRICIA BIRCH UNIT #: [id number] ROOM: 317 DOCTOR: LUIS ENRIQUE BLANKENSHIP MD BIRTHDATE: [birth year] DOS: 11/28/2017 SUBJECTIVE: The patient seen and I spoke with the staff. Per staff, the patient is pleasantly confused, medication compliant. No behavior problems or issues. The patient was pleasant and cooperative. She was in her room on the bed. She opened her eyes when I called her name. She said that she is doing "fine." Not in any acute distress. She denies any side effects from the medication. MENTAL STATUS EXAMINATION: Pleasant, cooperative. Described her mood as "fine." Affect was mood congruent. Thought processes with confabulation. She denied auditory or visual hallucinations. No delusion or paranoia noted. She denied suicidal ideation, intent or plan. She also denied any homicidal ideation, intent or plan. PLAN: 1. Continue current medication and care. 2. Continue redirection. 3. Encourage activity and groups. LUIS ENRIQUE BLANKENSHIP MD CM:PNTRANS 11 LUIS ENRIQUE BLANKENSHIP MD 11/29/17 0044 interface
--- NOTE | ~2017-11-21 | PR ---
[place], [place] PROGRESS NOTE NAME: PATRICIA BIRCH UNIT #: [id number] ROOM: 309 DOCTOR: PRANAV WATSON DO BIRTHDATE: [birth year] DOS: 11/25/2017 CHIEF COMPLAINT: "I don't know where I am." SUMMARY OF VISIT: The patient is an 87-year-old female with past medical history of vascular dementia, who was admitted to the U for worsening of ongoing auditory and visual hallucinations, currently on hospital day #4 with improved mood today. The patient was interviewed in the dining room while sitting in a Guerita chair. She did not appear to be in any distress. She responded to questions with one word answer responses. She did not voice any complaints. She was unable to answer what day of the week it was. The patient is currently on Cipro antibiotic for urinary tract infection. Per nursing staff, the patient had multiple watery bowel movements after receiving milk of magnesia yesterday. The patient slept 5 hours with multiple interruptions. MENTAL STATUS EXAMINATION: The patient is alert and oriented to self only. Mood is appropriate. Affect is withdrawn. She continues to have poor short-term memory. She is still experiencing auditory and visual hallucinations at baseline. She was unable to identify that she was in the hospital. PLAN: 1. Latuda was increased from 40 mg to 20 mg at bedtime. 2. Keppra level was ordered on 11/23/2017, results are pending. 3. Rapid plasma antigen ordered on 11/21/2017 was negative. 4. Urinary tract infection is being managed by the Internal Medicine hospitalist team. She is currently on Cipro 500 mg b.i.d. 5. Disposition: The patient is likely to be discharged sometime next week to [facility]. No precer required to return to facility. We will continue to engage the patient in individual and foster milieu activity, returning to the least restrictive environment when psychiatrically stable. Pranav Watson DO [place], [place] PROGRESS NOTE NAME: PATRICIA BIRCH UNIT #: [id number] ROOM: 309 DOCTOR: PRANAV WATSON DO BIRTHDATE: [birth year] KALIE NAVA MD CM:MELLISSA 1012 [id number] PRANAV WATSON DO 11/25/17 1028 interface
--- NOTE | ~2017-11-21 | PR ---
[place], [place] PROGRESS NOTE NAME: PATRICIA BIRCH UNIT #: [id number] ROOM: 317 DOCTOR: LUIS ENRIQUE BLANKENSHIP MD BIRTHDATE: [birth year] DOS: 11/29/2017 PSYCHIATRIC PROGRESS NOTE SUBJECTIVE: The patient was seen and spoke with the nursing staff. Per nursing staff, the patient is doing well. No behavior problems or issues. Compliant with her medication. She slept well last night. The patient was pleasant and cooperative. She was in the Guerita chair. When I asked her how she is doing, she said that "fine." She was not in any distress. She denied any side effect from the medication. MENTAL STATUS EXAMINATION: Pleasant, cooperative, described her mood as "fine." Affect, mood congruent. Thought processes with confabulation. She denied auditory or visual hallucination. No delusion or paranoia noted. She denied suicidal ideation, intent or plan. She also denied homicidal ideation, intent or plan. PLAN: 1. Continue current medication and care. 2. Continue redirection. 3. Continue with supportive care. 4. Final medication management and discharge planned by the regular team. LUIS ENRIQUE BLANKENSHIP MD CM:PNTRANS 17 18 LUIS ENRIQUE BLANKENSHIP MD 11/29/172117 interface
--- NOTE | ~2017-11-21 | PR ---
[place], [place] PROGRESS NOTE NAME: PATRICIA BIRCH UNIT #: [id number] ROOM: 317 DOCTOR: PRANAV WATSON DO BIRTHDATE: [birth year] DOS: 11/26/2017 CHIEF COMPLAINT: "I don't know what I want to eat for breakfast." SUMMARY OF VISIT: The patient is an 87-year-old female with past medical history of vascular dementia, who [facility] worsening of ongoing auditory and visual hallucinations, currently on hospital day #5 with improved mood. The patient was interviewed in the dining room while she was sitting in a Guerita chair, eating her cereal. The patient did not appear to be in any distress. She was unable to verbalize where she was. The patient has not shown signs of any hallucinations. She does continue to appear to be confused. She is currently on Cipro antibiotic for a urinary tract infection. The patient was able to sleep more than 8 hours last night. MENTAL STATUS EXAMINATION: The patient is alert and oriented to self only. Mood is appropriate. Affect is normal. She does continue to have poor short-term memory. She does not appear to be experiencing any hallucinations at this time. PLAN: 1. Keppra level was ordered on 11/23/2017, results are still pending. 2. The patient is currently on Cipro 500 mg b.i.d. for urinary tract infection. This is being managed by the internal medicine hospitalist team. 3. No changes to psychotropic regimen at this time, the patient seems to be tolerating this regimen well. 4. Disposition, the patient likely to be discharged Thursday11/30/2017. No pre-cert is required to return to facility. We will continue to engage the patient in individual and foster milieu activity, returning to the least restrictive environment when psychiatrically stable. Pranav Watson DO [place], [place] PROGRESS NOTE NAME: PATRICIA BIRCH UNIT #: [id number] ROOM: 317 DOCTOR: PRANAV WATSON DO BIRTHDATE: [birth year] KALIE NAVA MD CM:MELLISSA [id number] PRANAV WATSON DO 12/04/17 0857 interface
--- NOTE | ~2017-11-21 | PR ---
[place], [place] PROGRESS NOTE NAME: PATRICIA BIRCH UNIT #: [id number] ROOM: 309 DOCTOR: KALIE NAVA MD BIRTHDATE: [birth year] DOS: 11/22/2017 CHIEF COMPLAINT: "I don't feel well, what am I doing here?" SUMMARY OF THE VISIT: The patient was interviewed as she was engaging in activities in the group therapy room. She stopped to talk to me. She seems rather depressed and is rather flat and blunted. Nurses report similar behavior and that she does seem somewhat depressed to them. She reports she slept well and is eating well. She denies any medication side effects. MENTAL STATUS: She is alert and oriented to person, possibly place, not to time. Mood does seem to be rather depressed. Affect is flat, blunted and constricted. There is no kemi, hypomania or psychosis. Short term memory is poor. PLAN: I will check a Keppra level in the morning. I will also start her on Trintellix 10 mg a day to combat the depressive symptomatology, attempt to engage her in individual and foster milieu activity with the plan to return to the least restrictive environment when stable. KALIE NAVA MD CM:PNTRANS [id number] KALIE NAVA MD 11/22/17 1005 interface
[2017-11-21 08:12] VITALS: BP 140/88
[2017-11-21] MEDS ORDERED: KEPPRA500 MG PO (08:39)
[2017-11-21] MEDS ORDERED: LOPRESSOR25 MG PO (09:11)
[2017-11-21] MEDS ORDERED: SEROQUEL25 MG PO ×3 (09:12→09:17)
[2017-11-21] MEDS ORDERED: VITAMIN D350000 UNIT PO (09:14)
[2017-11-21 10:35] VITALS: BP 140/88
[2017-11-21 11:11] LABS: BASO % 0.5 % (0.0-1.0); EOS # 0.1 10*3/uL (0.0-0.4); EOS % 1.4 % (1.0-4.0); HEMATOCRIT 36.1 % (37.0-47.0); HEMOGLOBIN 11.5 g/dl (12.0-16.0); LYMPH # 2.2 10*3/uL (1.3-4.4); LYMPH % 35.2 % (27.0-41.0); MEAN CELL VOLUME 93.5 fl (81.0-99.0); MEAN CORPUSCULAR HGB 29.8 pg (27.0-31.0); MEAN CORPUSCULAR HGB CONC 31.9 g/dl (33.0-37.0); MEAN PLATELET VOLUME 10.5 fl (9.6-12.3); MONO # 0.6 10*3/uL (0.1-1.0); MONO % 9.3 % (3.0-9.0); NEUT # 3.3 10*3/uL (2.3-7.9); NEUT % 53.3 % (47.0-73.0); PLATELET COUNT AUTOMATED 192 10*3/uL (130-400); RED BLOOD COUNT 3.86 10*6/uL (4.10-5.10); RED CELL DISTRI WIDTH 14.1 % (0-14.5); WHITE BLOOD COUNT 6.3 10*3/uL (4.8-10.8)
[2017-11-21 11:29] LABS: ALBUMIN 2.9 gm/dl (3.1-4.5); ALKALINE PHOSPHATASE 77 U/L (45-117); BUN 21 mg/dl (7-24); CHLORIDE 109 mmol/L (98-107); CREATININE 0.87 mg/dL (0.55-1.02); POTASSIUM 4.1 mmol/L (3.5-5.1); SGOT/AST 21 IU/L (3-35); SGPT/ALT 20 U/L (12-78); SODIUM 144 mmol/L (136-145); TOTAL PROTEIN 5.9 gm/dL (6.4-8.2)
[2017-11-21 12:56] LABS: VITAMIN D, 25-HYDROXY 73.4 ng/mL (30-100)
[2017-11-21 20:00] VITALS: BP 140/88
[2017-11-22 07:41] VITALS: BP 117/88
[2017-11-22 19:44] VITALS: BP 139/89
[2017-11-23 05:31] LABS: BILIRUBIN NEGATIVE (NEGATIVE); BLOOD NEGATIVE (NEGATIVE); CLARITY SL CLOUDY (CLEAR); COLOR YELLOW (YELLOW); GLUCOSE NEGATIVE (NEGATIVE); KETONE NEGATIVE (NEGATIVE); LEUKO ESTERASE 1+ (NEGATIVE); NITRITE NEGATIVE (NEGATIVE); PH 6.5 (5.0-9.0); UROBILINOGEN 0.2 E.U./dl (0.2-1.0)
[2017-11-23 05:39] LABS: BACTERIA 4+; EPITHELIAL CELLS 16-20; WBC 31-40 wbc/hpf (0-5)
[2017-11-23 07:28] LABS: BUN 15 mg/dl (7-24); CHLORIDE 107 mmol/L (98-107); CREATININE 0.82 mg/dL (0.55-1.02); POTASSIUM 4.3 mmol/L (3.5-5.1); SODIUM 140 mmol/L (136-145)
[2017-11-23 07:50] VITALS: BP 143/80
[2017-11-23 20:00] VITALS: BP 155/85
[2017-11-24 07:51] VITALS: BP 151/79
[2017-11-24 20:00] VITALS: BP 124/76
[2017-11-25 07:28] VITALS: BP 140/64
[2017-11-25 19:49] VITALS: BP 141/82
[2017-11-26 07:49] VITALS: BP 142/69
[2017-11-26 19:15] VITALS: BP 143/84
[2017-11-27 08:32] VITALS: BP 138/72
[2017-11-27 20:29] VITALS: BP 121/67
[2017-11-28 08:02] VITALS: BP 121/67
[2017-11-28 20:00] VITALS: BP 138/72
[2017-11-29 08:50] VITALS: BP 114/61
[2017-11-29 20:30] VITALS: BP 126/64
[2017-11-30 07:35] VITALS: BP 119/73
[2017-11-30] MEDS ORDERED: EXELON13.3 MG/21 T (10:01)
[2017-11-30] MEDS ORDERED: LATU60TA PO (10:01)
[2017-11-30] MEDS ORDERED: MEMANTINE HCL10 MG PO (10:01)
[2017-11-30] MEDS ORDERED: BRIN20TA PO (10:01)
[2017-11-30 20:00] VITALS: BP 127/75
[2017-12-01 08:59] VITALS: BP 130/90
== END 2017-12-01 12:50 | DRG 56 ==
LOC: 3N 07:46
PROVIDERS: Internal Medicine; Psychiatry & Neurology Psychiatry
DX: G30.9 Alzheimer's disease, unspecified (principal); E43 Unspecified severe protein-calorie malnutrition; I48.91 Unspecified atrial fibrillation; F01.51 Vascular dementia, unspecified severity, with behavioral disturbance; F33.3 Major depressive disorder, recurrent, severe with psychotic symptoms; F02.81 Dementia in other diseases classified elsewhere, unspecified severity, with behavioral disturbance; F23 Brief psychotic disorder; Z68.1 Body mass index [BMI] 19.9 or less, adult; I25.10 Atherosclerotic heart disease of native coronary artery without angina pectoris; F63.81 Intermittent explosive disorder; I10 Essential (primary) hypertension; I25.2 Old myocardial infarction; Z79.899 Other long term (current) drug therapy; Z90.49 Acquired absence of other specified parts of digestive tract; Z79.01 Long term (current) use of anticoagulants; Z90.710 Acquired absence of both cervix and uterus; Z83.2 Family history of diseases of the blood and blood-forming organs and certain disorders involving the immune mechanism; Z83.3 Family history of diabetes mellitus